=== PATIENT | female | born 1990 | race Caucasian/White ===

== ENCOUNTER 2020-02-28 09:34 | Outpatient (REF) | payer OTHER, SELFPAY ==
[2020-02-28 12:51] LABS: TSH reflex Free T4 0.03 mIU/mL (0.32-4.0)
[2020-02-28 13:25] LABS: Free T4 (Free Thyroxine) 1.14 ng/dL (0.71-1.85)
== END 2020-02-28 09:35 | disposition home or self-care (01) ==
LOC: HO.WFDLDS 09:34
PROVIDERS: Visit Provider Hospitalist
DX: E03.9 Hypothyroidism, unspecified (principal)
CPT/HCPCS: 84439; 84443

== ENCOUNTER 2020-05-08 07:10 | Emergency (ER) | payer OTHER, SELFPAY ==
[2020-05-08 07:58] VITALS: BP 132/72; PULSE 106; RESP 18; TEMP 36.9; O2SAT 100; BMI 36.8
--- NOTE | 2020-05-08 08:04 | US_ITS ---
EXAMINATION: PELVIC ULTRASOUND CLINICAL INFORMATION: Heavy vaginal bleeding COMPARISON: Previous pelvic ultrasound November 2013 TECHNIQUE: Transabdominal and transvaginal pelvic ultrasound. Transvaginal exam was performed for better visualization of the uterus and ovaries. FINDINGS: The uterus is anteverted and measures 8.4 x 3.9 x 5 cm in dimension. No focal uterine lesion is seen. Endometrial thickness is normal measuring 0.7 cm. There is echogenic material seen in the lower endometrium probably representing blood products. The cervix is normal appearing. The ovaries are normal-appearing. The right ovary measures 3.8 x 2 x 2.4 cm and the left ovary measures 4.3 x 2 x 2.1 cm. There is no fluid in the pelvis. US/US transvaginal IMPRESSION: Normal pelvic ultrasound. Echogenic material seen in the lower endometrium probably representing blood product.
--- NOTE | 2020-05-08 08:04 | US_ITS ---
EXAMINATION: PELVIC ULTRASOUND CLINICAL INFORMATION: Heavy vaginal bleeding COMPARISON: Previous pelvic ultrasound November 2013 TECHNIQUE: Transabdominal and transvaginal pelvic ultrasound. Transvaginal exam was performed for better visualization of the uterus and ovaries. FINDINGS: The uterus is anteverted and measures 8.4 x 3.9 x 5 cm in dimension. No focal uterine lesion is seen. Endometrial thickness is normal measuring 0.7 cm. There is echogenic material seen in the lower endometrium probably representing blood products. The cervix is normal appearing. The ovaries are normal-appearing. The right ovary measures 3.8 x 2 x 2.4 cm and the left ovary measures 4.3 x 2 x 2.1 cm. There is no fluid in the pelvis. US/US pelvic complete IMPRESSION: Normal pelvic ultrasound. Echogenic material seen in the lower endometrium probably representing blood product.
--- NOTE | 2020-05-08 08:05 | ED.FEMALEGU ---
HPI - Female Genitourinary General Chief complaint: Vaginal Bleeding Stated complaint: VAG BLEED Time Seen by Provider: 05/08/20 07:15 Source: patient Mode of arrival: ambulatory Limitations: no limitations History of Present Illness HPI Narrative: 29 yo female with asthma and hypothyroid here with first episode of bleeding in 4 years which started Thursday - heavy clots, no prior bleeding issues, no other medications other than for asthma/thyroid MD elicited complaint: vaginal bleeding Pertinent past history: other (hx of IUD that migrated) Onset (ago): day(s) (5) Severity: moderate Female Urogenital Radiation: Non-Radiating Quality of pain: cramping Consistency: constant Vaginal discharge: none Vaginal bleeding: heavy and clots Exacerbating factors: none Relieving factors: none Associated symptoms: denies other symptoms Treatment prior to arrival: none Sexual activity: No Related Data Previous Rx's Medication Instructions Recorded levothyroxine 50 mcg tablet 50 mcg PO DAILY #30 tab 03/12/20 medroxyprogesterone [Provera] 10 mg PO DAILY #9 tab 05/08/20 Allergies Allergy/AdvReac Type Severity Reaction Status Date / Time No Known Allergies Allergy Unknown NONE Verified 02/24/20 07:52 Review of Systems Review of Systems: Constitutional : No Fever, No Chills ENT/Mouth : No sore throat, No Rhinorrhea Eyes: No Eye Pain, No Redness Cardiovascular : No Chest Pain, No SOB Respiratory : No Cough, No Sputum, No Wheezing Gastrointestinal : no Nausea, No Vomiting, No Diarrhea, positive abdominal pain, Genitourinary : positive irregular bleeding, No Dysuria, No Urinary Frequency, positive pelvic pain Musculoskeletal : No Myalgias Skin : No rash Neuro : No Weakness, No Headache Psych : No Anxiety/Panic, No Depression Heme/Lymph: No bruising, No Lymphadenopathy Endocrine : No Polyuria, No Polydipsia All other systems reviewed and are negative PMFSH Past Medical History Attestation statement: The following information was validated with the patient. Medical History Alopecia Asthma Hypothyroid Surgical History Encounter for IUD removal Family History Family History (Updated 02/24/20 @ 07:53 by ERICH Cuellar) Father No problems noted. Mother No problems noted. Social History Social History (Updated 05/08/20 @ 08:12 by Tanya Steven DO) Smoking Status: Never smoker Advance Directives: No Advance Directives Information Provided: No Physical Exam Vital Signs: Vital Signs: Last Vital Signs Temp 98.2 F 05/08/20 10:00 Pulse 75 05/08/20 10:00 Resp 17 05/08/20 10:00 BP 108/73 05/08/20 10:00 Pulse Ox 98 05/08/20 10:00 Body Mass Index 36.8 Appearance: Alert. Oriented X3. No acute distress. Eyes: Pupils equal, round and reactive to light. ENT: Pharynx normal. Neck: Normal inspection. Neck supple. CVS: Normal heart rate and rhythm. Pulses normal. Respiratory: No respiratory distress. Breath sounds normal. Abdomen: Soft and nontender. : 2 scopettes of blood, 1 clot, no significant bleeding Skin: Skin warm and dry. Normal skin color. Normal skin turgor. Extremities: No lower extremity edema. No calf ttp Neuro: Oriented X 3. No motor deficit. No sensory deficit. Course Course Course Narrative: stable VS and H/H given precautions to return plans to follow up with OB will start on Provera MDM - Female Genitourinary MDM Narrative Medical decision making narrative: 29 yo female with nexplanon first vaginal bleeding episode - comes in with sig clots, normal BP slightly tachy but steady gait no dizziness, will obtain labs, Rh type, US to evaluate uterus, possible provera, has no OB likely episode related to nexplanon x 4 years. Lab Data Result diagrams: 05/08/20 08:42 05/08/20 08:42 Labs: Lab Results 05/08/20 05/08/20 05/08/20 Range/Units 08:42 08:42 08:42 WBC 8.1 (4.8-10.8) X10*3/uL RBC 4.61 (4.20-5.50) X10*6/uL Hgb 13.6 (12.0-16.0) g/dl Hct 41.7 (37-47) % MCV 90.5 (80-98) fL MCH 29.5 (27.0-33.0) pg MCHC 32.6 (31.0-35.0) g/dl RDW 12.6 (11.0-16.0) % Plt Count 317 (160-400) X10*3/uL MPV 12.3 (9.4-12.3) fL Immature Gran % (Auto) 0.2 (0.0-0.4) % Neut % (Auto) 68.5 (45-73) % Lymph % (Auto) 19.3 L (20-40) % [place] % (Auto) 8.0 (2-11) % Eos % (Auto) 2.9 (0-4) % Baso % (Auto) 1.1 (0-2) % Lymph # (Auto) 1.6 (1.2-4.9) X10*3/uL [place] # (Auto) 0.6 (0.1-1.2) X10*3/uL Eos # (Auto) 0.2 (0.0-0.4) X10*3/uL Baso # (Auto) 0.1 (0.0-0.2) X10*3/uL Abs Immat Gran (auto) 0.02 (0.00-0.03) X10*3/uL Absolute Neuts (auto) 5.5 (2.0-8.3) X10*3/uL Absolute Nucleated RBC 0.000 (0.0-0.012) X10*3/uL Nucleated RBC % (auto) 0.0 (0.0-0.2) /100WBC PT 13.8 H (10.8-13.0) SEC INR 1.2 H (0.9-1.1) APTT 43.3 H (24.1-38.0) SEC Sodium 140 (135-145) mmol/L Potassium 4.0 (3.3-5.1) mmol/l Chloride 108 (96-108) mmol/L Carbon Dioxide 25 (22-29) mmol/L Anion Gap 11 L (12-20) BUN 8 L (9-16) mg/dL Creatinine 0.73 (0.5-1.4) mg/dL Estim Creat Clear Calc 95.1 Estimated GFR > 60 Random Glucose 90 (60-115) mg/dL Calcium 8.7 (8.4-10.2) mg/dL Beta HCG, Quant < 2 mIU/mL Urine Color Urine Appearance Urine pH (5.0-8.0) Ur Specific [place] (1.005-1.025) Urine Protein (NEG-TRACE) MG/DL Urine Glucose (UA) (NEG) MG/DL Urine Ketones (NEG) MG/DL Urine Blood (NEG) Urine Nitrite (NEG) Ur Leukocyte Esterase (NEG) Urine RBC (0) /HPF Urine WBC (0-4) /HPF Ur Squamous Epith Cells /LPF Urine Bacteria /LPF Blood Type 05/08/20 05/08/20 Range/Units 08:46 09:01 WBC (4.8-10.8) X10*3/uL RBC (4.20-5.50) X10*6/uL Hgb (12.0-16.0) g/dl Hct (37-47) % MCV (80-98) fL MCH (27.0-33.0) pg MCHC (31.0-35.0) g/dl RDW (11.0-16.0) % Plt Count (160-400) X10*3/uL MPV (9.4-12.3) fL Immature Gran % (Auto) (0.0-0.4) % Neut % (Auto) (45-73) % Lymph % (Auto) (20-40) % [place] % (Auto) (2-11) % Eos % (Auto) (0-4) % Baso % (Auto) (0-2) % Lymph # (Auto) (1.2-4.9) X10*3/uL [place] # (Auto) (0.1-1.2) X10*3/uL Eos # (Auto) (0.0-0.4) X10*3/uL Baso # (Auto) (0.0-0.2) X10*3/uL Abs Immat Gran (auto) (0.00-0.03) X10*3/uL Absolute Neuts (auto) (2.0-8.3) X10*3/uL Absolute Nucleated RBC (0.0-0.012) X10*3/uL Nucleated RBC % (auto) (0.0-0.2) /100WBC PT (10.8-13.0) SEC INR (0.9-1.1) APTT (24.1-38.0) SEC Sodium (135-145) mmol/L Potassium (3.3-5.1) mmol/l Chloride (96-108) mmol/L Carbon Dioxide (22-29) mmol/L Anion Gap (12-20) BUN (9-16) mg/dL Creatinine (0.5-1.4) mg/dL Estim Creat Clear Calc Estimated GFR Random Glucose (60-115) mg/dL Calcium (8.4-10.2) mg/dL Beta HCG, Quant mIU/mL Urine Color RED Urine Appearance TURBID Urine pH 7.0 (5.0-8.0) Ur Specific [place] 1.020 (1.005-1.025) Urine Protein 2+ H (NEG-TRACE) MG/DL Urine Glucose (UA) NEG (NEG) MG/DL Urine Ketones NEG (NEG) MG/DL Urine Blood 3+ H (NEG) Urine Nitrite NEG (NEG) Ur Leukocyte Esterase NEG (NEG) Urine RBC TNTC H (0) /HPF Urine WBC 10-14 H (0-4) /HPF Ur Squamous Epith Cells NONE /LPF Urine Bacteria NONE /LPF Blood Type A Negative Discharge Plan Discharge Clinical Impression: Dysfunctional uterine bleeding Patient Disposition: Home, Self-Care Instructions: Dysfunctional Uterine Bleeding (ED) Additional Instructions: return to ED for any worsening symptoms or concerns return for weakness, worsening bleeding, shortness of breath Prescriptions: New medroxyprogesterone [Provera] 10 mg tablet 10 mg PO DAILY Qty: 9 RF: 0 No Action levothyroxine 50 mcg tablet 50 mcg PO DAILY Qty: 30 RF: 1 Referrals: June Jackson MD [Physician] - 1 week
[2020-05-08 08:56] LABS: MANUAL DIFF FLAG NO
[2020-05-08 09:04] LABS: Basophils Absolute Auto 0.1 X10*3/uL (0.0-0.2); Basophils Percent Auto 1.1 % (0-2); Eosinophils Absolute Auto 0.2 X10*3/uL (0.0-0.4); Eosinophils Percent Auto 2.9 % (0-4); Hematocrit 41.7 % (37-47); Hemoglobin 13.6 g/dl (12.0-16.0); Imm Gran Abs Auto 0.02 X10*3/uL (0.00-0.03); Imm Gran Pct Auto 0.2 % (0.0-0.4); Lymphocytes Absolute Auto 1.6 X10*3/uL (1.2-4.9); Lymphocytes Percent Auto 19.3 % (20-40); Mean Corpuscular HGB Conc 32.6 g/dl (31.0-35.0); Mean Corpuscular Hemoglobin 29.5 pg (27.0-33.0); Mean Corpuscular Volume 90.5 fL (80-98); Mean Platelet Volume 12.3 fL (9.4-12.3); Monocytes Absolute Auto 0.6 X10*3/uL (0.1-1.2); Neutrophils Absolute Auto 5.5 X10*3/uL (2.0-8.3); Neutrophils Percent Auto 68.5 % (45-73); Platelet Count 317 X10*3/uL (160-400); Red Blood Count 4.61 X10*6/uL (4.20-5.50); Red Cell Distribution Width 12.6 % (11.0-16.0); White Blood Count 8.1 X10*3/uL (4.8-10.8)
[2020-05-08 09:09] LABS: INTERNATIONAL NORM RATIO 1.2 (0.9-1.1); Prothrombin Time 13.8 SEC (10.8-13.0)
[2020-05-08 09:11] LABS: Partial Thromboplastin Time 43.3 SEC (24.1-38.0)
[2020-05-08 09:18] LABS: Glucose Urine UA NEG (NEG); Nitrite Urine NEG (NEG); Urine Blood 3+ (NEG); Urine Ketones NEG (NEG); Urine Protein 2+ MG/DL (NEG-TRACE)
[2020-05-08 09:20] LABS: Appearance Urine TURBID; Color Urine RED
[2020-05-08 09:21] LABS: Leukocyte Esterase Urine NEG (NEG)
[2020-05-08 09:22] LABS: RBC Urine TNTC /HPF (0); UACC CULT YES
[2020-05-08 09:29] LABS: Anion Gap 11 (12-20); Blood Urea Nitrogen 8 mg/dL (9-16); Calcium 8.7 mg/dL (8.4-10.2); Carbon Dioxide 25 mmol/L (22-29); Chloride 108 mmol/L (96-108); Creatinine Clr Calc Pharmacy 95.1; Estimated Glomerular Filt Rate > 60; Glucose Random 90 mg/dL (60-115); Sodium 140 mmol/L (135-145)
[2020-05-08 09:36] LABS: HCG Quantitative < 2 mIU/mL
[2020-05-08 10:00] VITALS: BP 108/73; PULSE 75; RESP 17; TEMP 36.8; O2SAT 98
[2020-05-08] MEDS: medroxyPROGESTERone Acetate 5 MG TABLET 10 MG PO (11:13)
== END 2020-05-08 11:15 | disposition home or self-care (01) ==
PROVIDERS: Emergency Provider Emergency Medicine; PCP Hospitalist
DX: N93.8 Other specified abnormal uterine and vaginal bleeding (principal)
CPT/HCPCS: 36415; 76830; 76856; 80048; 81001; 84702; 85025; 85610; 85730; 86900; 86901; 87086; 99284

== ENCOUNTER 2020-05-11 07:45 | Outpatient (REF) | payer OTHER, SELFPAY ==
[2020-05-11 10:43] LABS: TSH reflex Free T4 8.58 mIU/mL (0.32-4.0)
[2020-05-11 11:20] LABS: Free T4 (Free Thyroxine) 0.83 ng/dL (0.71-1.85)
[2020-05-12 09:02] LABS: Prolactin 5.4 ng/mL
[2020-05-12 13:19] LABS: BV Int Neg Control Negative (Negative); BV Int Pos Control Positive (Positive)
[2020-05-13 02:17] LABS: C. trachomatis RNA TMA NOT DETECTED (NOT DETECTED); N. gonorrhoeae RNA TMA NOT DETECTED (NOT DETECTED)
[2020-05-16 06:02] LABS: HPV mRNA E6/E7 rflx Not Detected (Not Detected)
== END 2020-05-11 07:46 | disposition home or self-care (01) ==
LOC: HO.LAB 07:45
PROVIDERS: PCP Hospitalist; Visit Provider Obstetrics & Gynecology
DX: Z30.432 Encounter for removal of intrauterine contraceptive device (principal); N93.9 Abnormal uterine and vaginal bleeding, unspecified; L65.9 Nonscarring hair loss, unspecified; J45.909 Unspecified asthma, uncomplicated; E03.9 Hypothyroidism, unspecified; R79.1 Abnormal coagulation profile
CPT/HCPCS: 36415; 58100; 84146; 84439; 84443; 87480; 87491; 87510; 87591; 87624; 87660; 88142; 88305; 99202

== ENCOUNTER 2020-06-06 19:57 | Emergency (ER) | payer OTHER, SELFPAY ==
--- NOTE | ~2020-06-06 | XR_ITS ---
EXAMINATION: LEFT ANKLE LEFT FOOT CLINICAL INFORMATION: Injury with pain COMPARISON: None TECHNIQUE: 2 views left ankle, 3 views left foot FINDINGS: z Left Ankle: Soft tissue swelling is present laterally but no fracture is seen. The ankle mortise appears stable. Left foot: No bone joint or soft tissue abnormality is seen. XR/XR foot LT min 3V IMPRESSION: Some mild soft tissue swelling seen laterally but no fractures are seen.
--- NOTE | ~2020-06-06 | XR_ITS ---
EXAMINATION: LEFT ANKLE LEFT FOOT CLINICAL INFORMATION: Injury with pain COMPARISON: None TECHNIQUE: 2 views left ankle, 3 views left foot FINDINGS: z Left Ankle: Soft tissue swelling is present laterally but no fracture is seen. The ankle mortise appears stable. Left foot: No bone joint or soft tissue abnormality is seen. XR/XR ankle LT min 3V IMPRESSION: Some mild soft tissue swelling seen laterally but no fractures are seen.
[2020-06-06 20:17] VITALS: RESP 16; TEMP 37.2; O2SAT 99; BMI 34.7
--- NOTE | 2020-06-06 22:31 | ED.LOWEXIN ---
HPI - Extremity Injury (Lower) General Chief Complaint: Extremity Injury, Lower Stated Complaint: Foot injury Time Seen by Provider: 06/06/20 22:21 Source: patient Mode of arrival: wheelchair Limitations: no limitations History of Present Illness HPI Narrative: Patient comes to emergency room complaining of left foot pain. Patient states she was walking her dog, stepped off a curve, spraining her ankle. However, patient states that her ankle hurts slightly, but the rest of her foot hurts more. Patient states he has had previous fractures in the metatarsals. Patient denies hitting her head, he is not on blood thinners. Other than the foot, no pain anywhere else. Related Data Home Medications Medication Instructions Recorded Confirmed albuterol 90 mcg INHALATION Q4-6H PRN 05/25/20 05/25/20 budesonide-formoterol 2 puff PO BID 05/25/20 05/25/20 levothyroxine 300 mcg PO DAILY 05/25/20 05/25/20 Allergies Allergy/AdvReac Type Severity Reaction Status Date / Time No Known Allergies Allergy Unknown NONE Verified 05/11/20 08:16 Review of Systems Review of Systems: Constitutional : No Weight loss, No Fever, No Chills, No Night Sweats, No Fatigue, No Malaise ENT/Mouth : No Hearing loss, No Ear Pain, No Nasal Congestion, No Sinus Pain, No Hoarseness, No sore throat, No Rhinorrhea, No Swallowing Difficulty Eyes: No Eye Pain, No Swelling, No Redness, No Foreign Body, No Discharge, No Vision Changes Cardiovascular : No Chest Pain, No SOB, No Dyspnea on Exertion, No Orthopnea, No Edema, No Palpitations Respiratory : No Cough, No Sputum, No Wheezing, No Smoke Exposure, No Dyspnea Gastrointestinal : No Nausea, No Vomiting, No Diarrhea, No Constipation, No abdominal Pain, No Hematochezia, No Melena Genitourinary : no irregular bleeding, No Dysuria, No Urinary Frequency, No Hematuria, No Urinary Incontinence, No Urgency, No Flank Pain, No Urinary Flow Changes, No Hesitancy Musculoskeletal : Complaining of left ankle and foot pain, No Myalgias, No Joint Swelling Skin : No Skin Lesions, No rash Neuro : No Weakness, No Numbness, No Paresthesias, No Loss of Consciousness, No Dizziness, No Headache Psych : No Anxiety/Panic, No Depression, No SI/HI/AH/VH, No Social Issues, Heme/Lymph: No Bruising, No Bleeding,No Lymphadenopathy Endocrine : No Polyuria, No Polydipsia, No Temperature Intolerance [facility] Past Medical History Medical History Alopecia Asthma Hypothyroid Surgical History Encounter for IUD removal Family History Family History (Updated 05/25/20 @ 10:08 by Krupa Foster) Father Asthma Emphysema lung Mother COPD (chronic obstructive pulmonary disease) CHF (congestive heart failure) HTN (hypertension) Maternal Grandfather Bladder cancer Maternal Uncle Liver cancer HTN (hypertension) Maternal Uncle HTN (hypertension) Social History Social History (Updated 05/25/20 @ 10:09 by Krupa Foster) Alcohol intake: former Smoking Status: Never smoker Smoked in Last 30 Days: No Use of substances other than those prescribed or required for medical reasons: No Any prior treatment program specific to substance use: No Advance Directives: No Advance Directives Information Provided: Yes Sexual orientation: Straight/Heterosexual Gender identity: female Physical Exam Vital Signs: Vital Signs: Last Vital Signs Temp 98.9 F 06/06/20 20:17 Resp 16 06/06/20 20:17 Pulse Ox 99 06/06/20 20:17 Body Mass Index 34.7 Appearance: Alert. Oriented X3. No acute distress. Eyes: Pupils equal, round and reactive to light. ENT: Pharynx normal. Neck: Normal inspection. Neck supple. No lymph nodes noted. No crepitus CVS: Normal heart rate and rhythm. Pulses normal. Normal S1 and S2 Respiratory: No respiratory distress. Breath sounds normal. No Wheezing. No rales Abdomen: Soft and nontender. No rigidity. No distention. good BS x4 Skin: Skin warm and dry. Normal skin color. Normal skin turgor. Extremities: No lower extremity edema. Pain to palpation over the dorsum of the left foot, no pain on the lateral or medial malleolus, patient unable to bear weight on left foot Neuro: Oriented X 3. No motor deficit. No sensory deficit. Moving all extermities. No slurred speech. Course Course Course Narrative: I discussed the x-ray with the patient, no acute fracture. Patient is unable to bear weight, crutches were provided. Patient states that she has enough ibuprofen and Tylenol at home, declined prescription MDM - Extremity Injury (Lower) Imaging Data Left foot and ankle x-ray: Radiologist's impression: EFT ANKLE LEFT FOOT CLINICAL INFORMATION: Injury with pain COMPARISON: None TECHNIQUE: 2 views left ankle, 3 views left foot FINDINGS: z Left Ankle: Soft tissue swelling is present laterally but no fracture is seen. The ankle mortise appears stable. Left foot: No bone joint or soft tissue abnormality is seen. XR/XR foot LT min 3V IMPRESSION: Some mild soft tissue swelling seen laterally but no fractures are seen. Discharge Plan Discharge Clinical Impression: Ankle sprain and strain Patient Disposition: Home, Self-Care Instructions: Ankle Sprain (ED) Additional Instructions: Please follow-up with your primary care physician tomorrow. If you have any worsening or new symptoms, please return to the emergency room or call 911 Prescriptions: No Action levothyroxine 50 mcg tablet 300 mcg PO DAILY RF: 0 albuterol 90 mcg/actuation Aerosol 90 mcg INHALATION Q4-6H PRN (Reason: Wheezing) RF: 0 budesonide-formoterol 160-4.5 mcg/actuation HFA aerosol inhaler 2 puff PO BID RF: 0
[2020-06-06] MEDS: Ibuprofen 600 MG TABLET PO (23:09)
--- NOTE | 2020-06-06 23:09 | PC.NURSE ---
PT ALERT, TRANSFERED FROM W/C TO BED COLD PACK TO LEFT FOOT.
== END 2020-06-06 23:46 | disposition home or self-care (01) ==
PROVIDERS: Emergency Provider Emergency Medicine; PCP Hospitalist
DX: S93.402A Sprain of unspecified ligament of left ankle, initial encounter (principal); M25.572 Pain in left ankle and joints of left foot; X50.1XXA Overexertion from prolonged static or awkward postures, initial encounter; Y93.K1 Activity, walking an animal; Y92.480 Sidewalk as the place of occurrence of the external cause; Y99.8 Other external cause status; Z79.899 Other long term (current) drug therapy
CPT/HCPCS: 73610; 73630; 99283; 99284

== ENCOUNTER 2020-06-13 15:26 | Outpatient (REF) | payer OTHER, SELFPAY ==
[2020-06-13 16:14] LABS: INTERNATIONAL NORM RATIO 1.2 (0.9-1.1); Prothrombin Time 13.8 SEC (10.8-13.0)
[2020-06-13 16:17] LABS: Partial Thromboplastin Time 38.8 SEC (24.1-38.0)
== END 2020-06-13 15:27 | disposition home or self-care (01) ==
LOC: HO.LAB 15:26
PROVIDERS: PCP Hospitalist; Visit Provider Internal Medicine Medical Oncology
DX: R79.1 Abnormal coagulation profile (principal)
CPT/HCPCS: 36415; 85610; 85730

== ENCOUNTER 2020-06-27 12:25 | Outpatient (REF) | payer OTHER, SELFPAY ==
[2020-06-27 13:54] LABS: TSH reflex Free T4 0.07 uIU/mL (0.32-4.0)
[2020-06-27 14:26] LABS: Free T4 (Free Thyroxine) 1.17 ng/dL (0.71-1.85)
== END 2020-06-27 12:26 | disposition home or self-care (01) ==
LOC: HO.LAB 12:25
PROVIDERS: PCP Hospitalist; Visit Provider Hospitalist
DX: E03.9 Hypothyroidism, unspecified (principal)
CPT/HCPCS: 36415; 84439; 84443

== ENCOUNTER → 2020-06-29 09:19 | Outpatient (BNVA) | payer OTHER, SELFPAY | PROVIDERS: PCP Hospitalist; Visit Provider Nurse Practitioner Gerontology | DX: E03.9 Hypothyroidism, unspecified (principal) | CPT/HCPCS: 99212 ==

== ENCOUNTER 2020-08-31 11:07 | Outpatient (REF) | payer OTHER, SELFPAY ==
[2020-08-31 13:15] LABS: Free T4 (Free Thyroxine) 0.97 ng/dL (0.71-1.85); Thyroid Stimulating Hormone 0.01 uIU/mL (0.32-4.0)
[2020-09-03 14:52] LABS: Thyroglobulin Antibodies <1 IU/mL (< or = 1); Thyroid Peroxidase Antibodies 293 IU/mL (<9)
[2020-09-04 16:32] LABS: Thyroid Stimulating Immunoglob <89 % baseline (<140)
[2020-09-04 22:16] LABS: Transglutaminase Ab IgG 3 U/mL
[2020-09-11 13:07] LABS: Endomysial IgA Antibody Negative (Negative)
== END 2020-08-31 11:08 | disposition home or self-care (01) ==
LOC: HO.LAB 11:07
PROVIDERS: PCP Hospitalist; Visit Provider Nurse Practitioner Gerontology
DX: E03.9 Hypothyroidism, unspecified (principal)
CPT/HCPCS: 36415; 83516; 83520; 84439; 84443; 84445; 86255; 86256; 86376; 86800

== ENCOUNTER → 2020-09-28 09:40 | Outpatient (BNVA) | payer OTHER, SELFPAY | PROVIDERS: PCP Hospitalist; Visit Provider Nurse Practitioner Gerontology ==

== ENCOUNTER 2020-10-18 07:24 | Outpatient (REF) | payer OTHER, SELFPAY ==
[2020-10-18 08:16] LABS: MANUAL DIFF FLAG NO
[2020-10-18 08:20] LABS: Basophils Absolute Auto 0.1 X10*3/uL (0.0-0.2); Basophils Percent Auto 0.8 % (0-2); Eosinophils Absolute Auto 0.2 X10*3/uL (0.0-0.4); Eosinophils Percent Auto 2.4 % (0-4); Hematocrit 42.6 % (37-47); Hemoglobin 13.7 g/dl (12.0-16.0); Imm Gran Abs Auto 0.03 X10*3/uL (0.00-0.03); Imm Gran Pct Auto 0.3 % (0.0-0.4); Mean Corpuscular HGB Conc 32.2 g/dl (31.0-35.0); Mean Corpuscular Hemoglobin 28.5 pg (27.0-33.0); Mean Corpuscular Volume 88.6 fL (80-98); Mean Platelet Volume 11.7 fL (9.4-12.3); Monocytes Absolute Auto 0.6 X10*3/uL (0.1-1.2); Monocytes Percent Auto 6.8 % (2-11); Neutrophils Absolute Auto 5.8 X10*3/uL (2.0-8.3); Neutrophils Percent Auto 66.7 % (45-73); Platelet Count 385 X10*3/uL (160-400); Red Blood Count 4.81 X10*6/uL (4.20-5.50); Red Cell Distribution Width 13.6 % (11.0-16.0); White Blood Count 8.7 X10*3/uL (4.8-10.8)
[2020-10-18 08:39] LABS: INTERNATIONAL NORM RATIO 1.1 (0.9-1.1); Prothrombin Time 12.3 SEC (9.9-13.0)
[2020-10-18 08:41] LABS: Partial Thromboplastin Time 39.4 SEC (24.1-38.0)
[2020-10-18 08:45] LABS: Alanine Aminotransferase 30 U/L (0-31); Albumin Level 4.2 g/dL (3.5-5.0); Alkaline Phosphatase 119 U/L (39-117); Anion Gap 14 (12-20); Aspartate Amino Transferase 18 U/L (5-31); Bilirubin Total 0.7 mg/dL (0.0-1.0); Blood Urea Nitrogen 12 mg/dL (9-16); Calcium 9.4 mg/dL (8.4-10.2); Carbon Dioxide 22 mmol/L (22-29); Chloride 107 mmol/L (96-108); Estimated Glomerular Filt Rate > 60; Glucose Random 111 mg/dL (60-115); Potassium 4.2 mmol/L (3.3-5.1); Sodium 139 mmol/L (135-145); Total Protein 6.9 g/dL (6.5-8.0)
[2020-10-18 09:08] LABS: Free T4 (Free Thyroxine) 1.15 ng/dL (0.71-1.85); Thyroid Stimulating Hormone 1.28 uIU/mL (0.32-4.0)
[2020-10-18 11:07] LABS: CT PCR NOT DETECTED (Not Detect.); NG PCR NOT DETECTED (Not Detect.)
== END 2020-10-18 07:25 | disposition home or self-care (01) ==
LOC: HO.LAB 07:24
PROVIDERS: Obstetrics & Gynecology; Absent Provider Nurse Practitioner Gerontology; PCP Hospitalist; Visit Provider Internal Medicine Medical Oncology
DX: Z11.3 Encounter for screening for infections with a predominantly sexual mode of transmission (principal); E03.9 Hypothyroidism, unspecified; R79.1 Abnormal coagulation profile; R10.11 Right upper quadrant pain; R79.89 Other specified abnormal findings of blood chemistry; R74.8 Abnormal levels of other serum enzymes
CPT/HCPCS: 36415; 80053; 84439; 84443; 85025; 85610; 85730; 87491; 87591

== ENCOUNTER 2020-12-29 15:33 | Outpatient (REF) | payer OTHER, SELFPAY | END 2020-12-29 15:34 | disposition home or self-care (01) | LOC: HO.LNP 15:33 | PROVIDERS: Visit Provider Physician Assistant Medical | DX: Z20.822 Contact with and (suspected) exposure to COVID-19 (principal); J31.0 Chronic rhinitis; J32.9 Chronic sinusitis, unspecified | CPT/HCPCS: U0003; U0005 ==

== ENCOUNTER 2021-07-15 15:01 | Outpatient (REF) | payer OTHER, SELFPAY ==
[2021-07-15 15:11] LABS: MANUAL DIFF FLAG NO
[2021-07-15 15:37] LABS: Basophils Absolute Auto 0.1 X10*3/uL (0.0-0.2); Basophils Percent Auto 0.8 % (0-2); Eosinophils Absolute Auto 0.3 X10*3/uL (0.0-0.4); Eosinophils Percent Auto 2.3 % (0-4); Hematocrit 41.6 % (37.0-47.0); Hemoglobin 13.5 g/dl (12.0-16.0); Imm Gran Abs Auto 0.02 X10*3/uL (0.00-0.03); Imm Gran Pct Auto 0.2 % (0.0-0.4); Lymphocytes Absolute Auto 3.2 X10*3/uL (1.2-4.9); Lymphocytes Percent Auto 30.1 % (20-40); Mean Corpuscular HGB Conc 32.5 g/dl (31.0-35.0); Mean Corpuscular Hemoglobin 29.5 pg (27.0-33.0); Mean Corpuscular Volume 90.8 fL (80.0-98.0); Mean Platelet Volume 11.5 fL (9.4-12.3); Monocytes Absolute Auto 0.8 X10*3/uL (0.1-1.2); Monocytes Percent Auto 7.4 % (2-11); Neutrophils Absolute Auto 6.3 x10*3/uL (2.0-8.3); Neutrophils Percent Auto 59.2 % (45-73); Platelet Count 364 X10*3/uL (160-400); Red Blood Count 4.58 X10*6/uL (4.20-5.50); Red Cell Distribution Width 12.9 % (11.0-16.0); White Blood Count 10.7 X10*3/uL (4.8-10.8)
[2021-07-15 16:00] LABS: Alanine Aminotransferase 35 U/L (0-31); Albumin Level 4.5 g/dL (3.5-5.0); Alkaline Phosphatase 97 U/L (39-117); Anion Gap 12 (12-20); Aspartate Amino Transferase 23 U/L (5-31); Bilirubin Direct 0.2 mg/dL (0.0-0.5); Bilirubin Total 0.6 mg/dL (0.0-1.0); Blood Urea Nitrogen 10 mg/dL (9-16); Calcium 9.9 mg/dL (8.4-10.2); Carbon Dioxide 27 mmol/L (22-29); Chloride 105 mmol/L (96-108); Estimated Glomerular Filt Rate > 60; Glucose Random 85 mg/dL (60-115); Potassium 4.9 mmol/L (3.3-5.1); Sodium 139 mmol/L (135-145); Total Protein 7.3 g/dL (6.5-8.0)
[2021-07-15 16:23] LABS: Free T4 (Free Thyroxine) 0.75 ng/dL (0.71-1.85); Thyroid Stimulating Hormone 41.09 uIU/mL (0.32-4.0); Vitamin D 25-OH Total 24.4 ng/mL (>30)
[2021-07-15 16:34] LABS: Folate 7.3 ng/mL (> or = 4.0); Vitamin B12 537 pg/mL (200-900)
[2021-07-16 08:32] LABS: HBc Num1 0.08 S/CO (0.00-0.79); HBsAGNum1 0.19 S/CO (0.00-0.99); Hepatitis B Core Antibody Nonreactive (Nonreactive); Hepatitis B Surface Antigen Negative (Negative)
[2021-07-16 09:04] LABS: HBS Num1 0.28 mIU/mL (0-7.99); ~HepC Num1 0.08 S/CO (0.00-0.79); ~Hepatitis B Surface Antibody NONREACTIVE (Nonreactive); ~Hepatitis C Antibody Nonreactive (Nonreactive)
== END 2021-07-15 15:02 | disposition home or self-care (01) ==
LOC: HO.LAB 15:01
PROVIDERS: PCP Internal Medicine; Visit Provider Internal Medicine
DX: R94.5 Abnormal results of liver function studies (principal); E03.9 Hypothyroidism, unspecified
CPT/HCPCS: 36415; 80053; 82248; 82306; 82607; 82746; 84439; 84443; 85025; 86704; 86706; 86803; 87340

== ENCOUNTER 2021-07-27 08:23 | Outpatient (REF) | payer OTHER, SELFPAY ==
[2021-07-27 09:23] LABS: Cholesterol 196 mg/dL; HDL Cholesterol 50 mg/dL; LDL Cholesterol Calculated 137 mg/dl; Triglycerides 48 mg/dL
== END 2021-07-27 08:24 | disposition home or self-care (01) ==
LOC: HO.LAB 08:23
PROVIDERS: PCP Internal Medicine; Visit Provider Internal Medicine
DX: E78.00 Pure hypercholesterolemia, unspecified (principal); R79.89 Other specified abnormal findings of blood chemistry
CPT/HCPCS: 36415; 80061

== ENCOUNTER 2021-09-04 08:13 | Outpatient (REF) | payer OTHER, SELFPAY ==
--- NOTE | ~2021-09-04 | US_ITS ---
EXAMINATION: US ABDOMEN COMPLETE CLINICAL INFORMATION: Elevated LFTs. COMPARISON: CT abdomen and pelvis 12/06/2013. TECHNIQUE: Real-time imaging of the abdominal viscera. FINDINGS: PANCREAS: Within normal limits. The tail is not adequately visualized. The head is suboptimally visualized ABDOMINAL AORTA: The proximal, mid, and distal segments are normal in caliber. INFERIOR VENA CAVA: Visualized portions are normal. LIVER: Normal. The liver is normal in size. The liver contour is normal. Parenchymal echogenicity is normal. No focal hepatic lesion. There is no intrahepatic biliary duct dilatation seen. GALLBLADDER: Normal. The gallbladder is physiologically distended without evidence of stones, sludge, polyps, wall thickening or pericholecystic fluid. COMMON BILE DUCT: Normal in caliber measuring 0.3 cm in diameter. RIGHT KIDNEY: Normal. No hydronephrosis. No renal calculi or focal parenchymal lesions. The kidney measures 10.9 cm in maximum dimension. LEFT KIDNEY: Normal. No hydronephrosis. No renal calculi or focal parenchymal lesions. The kidney measures 11.2 cm in maximum dimension. SPLEEN: Normal. The spleen measures 9.8 cm in maximum dimension. FREE FLUID: None. US/US abdomen complete IMPRESSION: No suspicious finding. No evidence of cholelithiasis or cholecystitis. There is no free fluid. The visualized Liver is felt to be unremarkable.
== END 2021-09-04 08:14 | disposition home or self-care (01) ==
LOC: HO.US 08:13
PROVIDERS: Visit Provider Internal Medicine
DX: R18.8 Other ascites (principal); R79.89 Other specified abnormal findings of blood chemistry
CPT/HCPCS: 76700

== ENCOUNTER → 2021-09-27 09:50 | Outpatient (BNVA) | payer OTHER, SELFPAY | PROVIDERS: PCP Internal Medicine; Visit Provider Nurse Practitioner Gerontology | DX: E03.9 Hypothyroidism, unspecified (principal) | CPT/HCPCS: 99212 ==

== ENCOUNTER 2021-10-03 08:45 | Outpatient (REF) | payer OTHER, SELFPAY ==
[2021-10-03 10:39] LABS: Free T4 (Free Thyroxine) 0.93 ng/dL (0.71-1.85)
== END 2021-10-03 08:46 | disposition home or self-care (01) ==
LOC: HO.LAB 08:45
PROVIDERS: PCP Internal Medicine; Visit Provider Nurse Practitioner Gerontology
DX: E03.9 Hypothyroidism, unspecified (principal)
CPT/HCPCS: 36415; 84439; 84443

== ENCOUNTER 2021-10-31 10:21 | Outpatient (REF) | payer OTHER, SELFPAY ==
[2021-10-31 11:01] LABS: MANUAL DIFF FLAG NO
[2021-10-31 11:32] LABS: Basophils Absolute Auto 0.2 X10*3/uL (0.0-0.2); Basophils Percent Auto 1.6 % (0-2); Eosinophils Absolute Auto 0.3 X10*3/uL (0.0-0.4); Eosinophils Percent Auto 3.6 % (0-4); Hematocrit 41.8 % (37.0-47.0); Hemoglobin 13.7 g/dl (12.0-16.0); Imm Gran Abs Auto 0.03 X10*3/uL (0.00-0.03); Imm Gran Pct Auto 0.3 % (0.0-0.4); Lymphocytes Absolute Auto 1.9 X10*3/uL (1.2-4.9); Lymphocytes Percent Auto 20.7 % (20-40); Mean Corpuscular HGB Conc 32.8 g/dl (31.0-35.0); Mean Corpuscular Hemoglobin 30.1 pg (27.0-33.0); Mean Corpuscular Volume 91.9 fL (80.0-98.0); Monocytes Absolute Auto 0.8 X10*3/uL (0.1-1.2); Monocytes Percent Auto 9.1 % (2-11); Neutrophils Absolute Auto 5.9 x10*3/uL (2.0-8.3); Neutrophils Percent Auto 64.7 % (45-73); Platelet Count 364 X10*3/uL (160-400); Red Blood Count 4.55 X10*6/uL (4.20-5.50); Red Cell Distribution Width 12.6 % (11.0-16.0); White Blood Count 9.1 X10*3/uL (4.8-10.8)
[2021-10-31 12:07] LABS: Alanine Aminotransferase 38 U/L (0-31); Albumin Level 4.4 g/dL (3.5-5.0); Alkaline Phosphatase 106 U/L (39-117); Anion Gap 13 (12-20); Aspartate Amino Transferase 23 U/L (5-31); Bilirubin Total 0.6 mg/dL (0.0-1.0); Blood Urea Nitrogen 11 mg/dL (9-16); Carbon Dioxide 23 mmol/L (22-29); Chloride 107 mmol/L (96-108); Estimated Glomerular Filt Rate > 60; Glucose Random 94 mg/dL (60-115); Potassium 4.6 mmol/L (3.3-5.1); Sodium 138 mmol/L (135-145); Total Protein 7.1 g/dL (6.5-8.0)
[2021-11-01 08:14] LABS: HBS Num1 1.18 mIU/mL (0-7.99); Hepatitis B Surface Antigen Negative (Negative); ~HepC Num1 0.05 S/CO (0.00-0.79); ~Hepatitis B Surface Antibody NONREACTIVE (Nonreactive); ~Hepatitis C Antibody Nonreactive (Nonreactive)
[2021-11-03 00:07] LABS: TS Negative Control Passed; TS Panel A 0; TS Panel B 0; TS Positive Control Passed; TSpotTB Negative (Negative)
[2021-11-05 10:55] LABS: Hepatitis BE Antibody NON-REACTIVE (NON-REACTIVE)
== END 2021-10-31 10:22 | disposition home or self-care (01) ==
LOC: HO.LAB 10:21
PROVIDERS: Absent Provider Internal Medicine Medical Oncology; PCP Internal Medicine; Referring Provider Physician Assistant Medical; Visit Provider Internal Medicine
DX: Z11.1 Encounter for screening for respiratory tuberculosis (principal); L63.8 Other alopecia areata
CPT/HCPCS: 36415; 80053; 85025; 86481; 86706; 86707; 86803; 87340

== ENCOUNTER 2021-11-06 09:02 | Outpatient (REF) | payer OTHER, SELFPAY ==
[2021-11-06 10:24] LABS: Cholesterol 170 mg/dL; HDL Cholesterol 42 mg/dL; LDL Cholesterol Calculated 114 mg/dl; Triglycerides 73 mg/dL
[2021-11-06 10:46] LABS: Free T4 (Free Thyroxine) 0.92 ng/dL (0.71-1.85); Thyroid Stimulating Hormone 0.76 uIU/mL (0.32-4.0)
[2021-11-06 11:30] LABS: Reflex LDLD? No
== END 2021-11-06 09:03 | disposition home or self-care (01) ==
LOC: HO.LAB 09:02
PROVIDERS: PCP Internal Medicine; Visit Provider Dermatology
DX: E03.9 Hypothyroidism, unspecified (principal); L63.8 Other alopecia areata
CPT/HCPCS: 36415; 80061; 84439; 84443

== ENCOUNTER 2021-11-12 15:27 | Outpatient (REF) | payer OTHER, SELFPAY ==
--- NOTE | ~2021-11-12 | US_ITS ---
EXAMINATION: US THYROID CLINICAL INFORMATION: Hypothyroidism COMPARISON: None TECHNIQUE: Linear transducer grayscale and color Doppler examination with attention to the region of the thyroid. FINDINGS: SIZE: Measurements of the thyroid lobes and nodules are given in sagittal, anteroposterior and transverse dimensions respectively. Right Thyroid Lobe: 4.7 x 1.7 x 1.6 cm, volume 6.6 mL. Parenchyma: The gland echotexture is heterogeneous. Thyroid vascularity is increased. Left Thyroid Lobe: 4.4 x 1.5 x 1.6 cm, volume 5.3 mL. Parenchyma: The gland echotexture is heterogeneous. Thyroid vascularity is increased. Isthmus: 0.38 cm in maximum AP dimension. Estimated total number of nodules greater than or equal to 1 cm: 0. Hand Developer nodules are described as follows: 1. Location: Left midpole. Size: 0.50 x 0.30 x 0.40 cm, volume 0.03 mL. Nodule characteristics: Composition: Solid (2). Echogenicity: Hyperechoic (1). Shape: Not taller than wide (0). Margins: Smooth (0). Echogenic Foci: None (0). ACR TI-RADS total points: 3 ACR TI-RADS category: 3 NODES: No lymphadenopathy is seen in the tissue surrounding the thyroid gland. US/US thyroid IMPRESSION: Findings consistent with acute thyroiditis. Single left midpole hyperechoic nodule with ACR TI-RADS Category 3 ACR TI-RADS RECOMMENDATION REFERENCE: * TR1 (0 point) and TR 2 (2 points): No FNA or follow up * TR3 (3 points): FNA if more than or equal to 2.5 cm in maximum dimension, followup ultrasound in 1, 3 and 5 years if 1.5 to 2.4 cm in maximum dimension.
== END 2021-11-12 15:28 | disposition home or self-care (01) ==
LOC: HO.HMGCX 15:27
PROVIDERS: Visit Provider Nurse Practitioner Gerontology
DX: E03.9 Hypothyroidism, unspecified (principal)
CPT/HCPCS: 76536

== ENCOUNTER → 2022-04-09 15:15 | Outpatient (BNVA) | payer OTHER, SELFPAY | PROVIDERS: PCP Internal Medicine; Visit Provider Internal Medicine Endocrinology, Diabetes & Metabolism | DX: E03.9 Hypothyroidism, unspecified (principal) | CPT/HCPCS: 99212 ==

== ENCOUNTER 2022-08-13 10:12 | Outpatient (REF) | payer OTHER, SELFPAY ==
[2022-08-13 10:35] LABS: MANUAL DIFF FLAG NO
[2022-08-13 10:59] LABS: Basophils Absolute Auto 0.1 X10*3/uL (0.0-0.2); Eosinophils Absolute Auto 0.3 X10*3/uL (0.0-0.4); Eosinophils Percent Auto 3.1 % (0-4); Hematocrit 40.6 % (37.0-47.0); Hemoglobin 13.2 g/dl (12.0-16.0); Imm Gran Abs Auto 0.03 X10*3/uL (0.00-0.03); Imm Gran Pct Auto 0.3 % (0.0-0.4); Lymphocytes Absolute Auto 2.4 X10*3/uL (1.2-4.9); Lymphocytes Percent Auto 23.8 % (20-40); Mean Corpuscular HGB Conc 32.5 g/dl (31.0-35.0); Mean Corpuscular Volume 92.3 fL (80.0-98.0); Mean Platelet Volume 11.3 fL (9.4-12.3); Monocytes Absolute Auto 0.8 X10*3/uL (0.1-1.2); Monocytes Percent Auto 8.4 % (2-11); Neutrophils Absolute Auto 6.4 x10*3/uL (2.0-8.3); Neutrophils Percent Auto 63.4 % (45-73); Platelet Count 413 X10*3/uL (160-400); White Blood Count 10.1 X10*3/uL (4.8-10.8)
[2022-08-13 11:57] LABS: Alanine Aminotransferase 28 U/L (0-31); Albumin Level 4.1 g/dL (3.5-5.0); Alkaline Phosphatase 107 U/L (39-117); Anion Gap 12 (12-20); Aspartate Amino Transferase 18 U/L (5-31); Bilirubin Total 0.5 mg/dL (0.0-1.0); Blood Urea Nitrogen 12 mg/dL (9-16); Calcium 9.5 mg/dL (8.4-10.2); Carbon Dioxide 24 mmol/L (22-29); Chloride 108 mmol/L (96-108); Cholesterol 181 mg/dL; Estimated Glomerular Filt Rate > 60; Glucose Random 86 mg/dL (60-115); HDL Cholesterol 49 mg/dL; LDL Cholesterol Calculated 122 mg/dl; Sodium 139 mmol/L (135-145); Total Protein 6.7 g/dL (6.5-8.0); Triglycerides 53 mg/dL
[2022-08-13 12:22] LABS: Free T4 (Free Thyroxine) 0.75 ng/dL (0.71-1.85); Thyroid Stimulating Hormone 2.21 uIU/mL (0.32-4.0)
[2022-08-15 03:44] LABS: LDL Cholesterol Direct 116 mg/dL (<100)
== END 2022-08-13 10:13 | disposition home or self-care (01) ==
LOC: HO.LAB 10:12
PROVIDERS: PCP Internal Medicine; Visit Provider Physician Assistant Medical
DX: E03.9 Hypothyroidism, unspecified (principal); L63.8 Other alopecia areata; L70.0 Acne vulgaris
CPT/HCPCS: 36415; 80053; 80061; 83721; 84439; 84443; 85025

== ENCOUNTER 2022-11-19 09:06 | Outpatient (AMB) | payer OTHER, SELFPAY ==
[2022-11-19 09:07] VITALS: BP 112/68; PULSE 65; O2SAT 99; BMI 39.5
--- NOTE | 2022-11-19 09:07 | MHC.PC.OV ---
Vital Signs 11/19/22 09:07 Height 4 ft 10 in Weight 189 lb BMI 39.5 BP 112/68 Blood Pressure Location Lt brachial Position Sitting Pulse 65 Pulse Source Pulse Oximeter Temp Source Skin Pulse Oximetry (%) 99 Oxygen Delivery Method Room Air Intake Visit Reasons: Medications Ski Topper Required: No Allergies Seasonal Allergies Allergy (Verified 11/19/22 09:19) ASTHMA Medication List - Last Reconciled 11/19/22 by LEX[facility] [place] albuterol sulfate 90 mcg/actuation 1 inh inhalation QID PRN 30 days baricitinib (Olumiant) 2 mg PO DAILY budesonide-formoterol 160-4.5 mcg/actuation (Symbicort) 2 puffs PO BID bupropion HCl (Wellbutrin XL) 150 mg PO QAM levothyroxine 150 mcg PO DAILY 30 days [multivitamin PO DAILY] [Probiotic 1 tab PO DAILY] Tobacco use date assessed: 11/19/22 Dental Screening Dental Screen Date: 11/19/22 Did you have a dental visit in the last 12 months?: Yes Did you have a dental problem in the last 6 months where you did not have access to dental care?: No Was dental information given to patient?: Patient has dentist HPI Medications HPI Details Patient is a 32-year-old female presents today to follow-up on medications. Patient of Dr. Rod. Medical history significant for hypothyroid asthma obesity, alopecia-followed by Dermatology, depression, anxiety. Patient reports that she feels like her anxiety is worse now, she has hard time sleeping, it looks like patient has been off her Wellbutrin for the past 3 months, will resent prescription in give 2 refills. Patient denies shortness of breath or chest pain. Asthma is stable. Interested in counseling referral. Recent blood work 3 months ago stable. [facility] Medical History Alopecia Asthma Foot fracture, left Hypothyroid Recurrent major depression Rhinosinusitis Right otitis media Surgical History Encounter for IUD removal Family History Father Asthma Emphysema lung Myocardial infarct Mother COPD (chronic obstructive pulmonary disease) CHF (congestive heart failure) HTN (hypertension) Maternal Grandfather Bladder cancer Maternal Uncle Liver cancer HTN (hypertension) Maternal Uncle HTN (hypertension) Social History Household Members: Family Housing: House Alcohol intake: current Alcohol intake frequency: holidays/special occasions only Patient Tobacco Use Status: Never used Tobacco service: No Current occupational status: employed Sexual orientation: Straight/Heterosexual Gender identity: Female Cognitive needs: No Hearing needs: No Vision needs: No Questionnaire Thrive Questionnaire Date Thrive assessed: 07/21/22 AUDIT C Alcohol Use Questionnaire (AUDIT-C) 1. How often do you have a drink containing alcohol?: 2-4 times a month 2. How many drinks containing alcohol do you have on a typical day when you are drinking?: 1 or 2 3. How often do you have six or more drinks on one occasion?: Never Total Score: 2 Score Reviewed/Action Taken: No MARGI-7 AMB Questionnaire MARGI-7 Date MARGI - 7 assessed: 07/21/22 Source: Developed by Drs. Alhaji Lindo, Radha Antonio, Myke Brizuela and colleagues, with an educational isa from [employer]. Review of Systems Const Denies body aches, Denies chills, Denies fever(s) and Denies headache(s) Eyes Denies change in vision ENT Denies dizziness, Denies otalgia, Denies headache(s), Denies nasal discharge, Denies sinus pain and Denies sore throat Card Denies chest pain, Denies edema, Denies lightheadedness and Denies dyspnea Resp Denies cough, Denies dyspnea and Denies wheezing GI Denies constipation, Denies diarrhea, Denies nausea and Denies vomiting Denies dysuria Musc Denies myalgias Skin/Breast Denies rash Neuro Denies dizziness and Denies headache(s) Aller/Immun Denies wheezing Physical exam (Primary Care) Vital Signs: Last Vital Signs Pulse 65 11/19/22 09:07 BP 112/68 11/19/22 09:07 Pulse Ox 99 11/19/22 09:07 Oxygen Delivery Method Room Air 11/19/22 09:07 BMI result Body Mass Index 39.5 Tobacco/Smoking Status: Tobacco use Status Tobacco use date assessed 11/19/22 11/19/22 09:08 Patient Tobacco Use Status Never used Tobacco 11/19/22 09:08 Thrive Assessment: Date of Thrive Assessment Date Thrive assessed 07/21/22 11/19/22 09:08 Const General: cooperative and no acute distress Orientation/consciousness: patient oriented x3 HENMT Head: Yes normocephalic and Yes atraumatic Face and sinus: Yes sinuses nontender Mouth: oropharynx normal and moist mucous membranes Throat: Yes posterior oropharynx normal Eyes General: appearance normal, both eyes and all related structures Neck Neck: Yes normal visual inspection, Yes full ROM and Yes no lymphadenopathy Thyroid: Thyroid normal Resp Effort & Inspection: normal respiratory effort and able to speak in complete sentences Auscultation: clear to auscultation bilaterally, no crackles, no rales, no rhonchi and no wheezes Cardio Rate: regular rate Rhythm: regular rhythm Heart sounds: S1 normal heart sound present and S2 normal heart sound present GI Auscultation: normal bowel sounds Skin General skin exam: no rashes or lesions noted Neuro General: patient oriented x3 Gait exam (Neuro): Normal gait present Extrem General: Yes full ROM and No edema Assessment and Plan Assessment & Plan (1) Anxiety: Code(s): F41.9 - Anxiety disorder, unspecified Plan: Patient has been of Wellbutrin for the past 3 months, continue Wellbutrin rx resend Start hydroxyzine b.i.d. p.r.n.-educated about drowsiness Counseling referral (2) Recurrent major depression: Code(s): F33.9 - Major depressive disorder, recurrent, unspecified Plan: Same as above (3) Asthma: Code(s): J45.909 - Unspecified asthma, uncomplicated Plan: Stable Continue current inhalers as prescribed (4) Hypothyroid: Code(s): E03.9 - Hypothyroidism, unspecified Plan: Continue levothyroxine 150 mcg daily Plan Keep appointment with PCP as scheduled or follow-up sooner as needed Orders: Referrals Counseling Referral F33.9 - Major depressive disorder, recurrent, unspecified, F41.9 - Anxiety disorder, unspecified Medications: New hydroxyzine HCl 10 mg PO BID PRN 14 tabs 0RF anxiety F41.9 - Anxiety disorder, unspecified Refilled bupropion HCl (Wellbutrin XL) 150 mg PO QAM 30 tabs 2RF F33.9 - Major depressive disorder, recurrent, unspecified, F41.9 - Anxiety disorder, unspecified Coding Level of Care Code Est Pt Level 4 (86447) Diagnoses Anxiety F41.9 Recurrent major depression F33.9 Asthma J45.909 Hypothyroid E03.9
== END 2022-11-19 09:32 | disposition home or self-care (01) ==
PROVIDERS: PCP Internal Medicine; Visit Provider Nurse Practitioner Family
DX: F41.9 Anxiety disorder, unspecified (principal); F33.9 Major depressive disorder, recurrent, unspecified; J45.909 Unspecified asthma, uncomplicated; E03.9 Hypothyroidism, unspecified
CPT/HCPCS: 99214

== ENCOUNTER 2022-11-19 09:45 | Outpatient (REF) | payer OTHER, SELFPAY ==
[2022-11-19 10:08] LABS: MANUAL DIFF FLAG NO
[2022-11-19 10:46] LABS: Basophils Absolute Auto 0.1 X10*3/uL (0.0-0.2); Basophils Percent Auto 1.3 % (0-2); Eosinophils Absolute Auto 0.3 X10*3/uL (0.0-0.4); Hematocrit 43.9 % (37.0-47.0); Hemoglobin 14.1 g/dl (12.0-16.0); Imm Gran Abs Auto 0.03 X10*3/uL (0.00-0.03); Imm Gran Pct Auto 0.3 % (0.0-0.4); Lymphocytes Absolute Auto 2.7 X10*3/uL (1.2-4.9); Lymphocytes Percent Auto 28.8 % (20-40); Mean Corpuscular HGB Conc 32.1 g/dl (31.0-35.0); Mean Corpuscular Hemoglobin 29.6 pg (27.0-33.0); Monocytes Absolute Auto 0.5 X10*3/uL (0.1-1.2); Monocytes Percent Auto 5.7 % (2-11); Neutrophils Absolute Auto 5.7 x10*3/uL (2.0-8.3); Neutrophils Percent Auto 60.9 % (45-73); Platelet Count 423 X10*3/uL (160-400); Red Blood Count 4.77 X10*6/uL (4.20-5.50); Red Cell Distribution Width 12.9 % (11.0-16.0); White Blood Count 9.4 X10*3/uL (4.8-10.8)
[2022-11-19 11:22] LABS: Alanine Aminotransferase 26 U/L (0-31); Albumin Level 4.3 g/dL (3.5-5.0); Alkaline Phosphatase 88 U/L (39-117); Anion Gap 11 (12-20); Aspartate Amino Transferase 20 U/L (5-31); Bilirubin Total 0.4 mg/dL (0.0-1.0); Blood Urea Nitrogen 14 mg/dL (9-16); Calcium 9.4 mg/dL (8.4-10.2); Carbon Dioxide 26 mmol/L (22-29); Chloride 107 mmol/L (96-108); Cholesterol 218 mg/dL; Estimated Glomerular Filt Rate > 60; Glucose Random 88 mg/dL (60-115); HDL Cholesterol 56 mg/dL; LDL Cholesterol Calculated 148 mg/dl; Sodium 140 mmol/L (135-145); Total Protein 7.5 g/dL (6.5-8.0); Triglycerides 74 mg/dL
== END 2022-11-19 09:46 | disposition home or self-care (01) ==
LOC: HO.LAB 09:45
PROVIDERS: PCP Internal Medicine; Visit Provider Physician Assistant Medical
DX: L63.8 Other alopecia areata (principal); L70.0 Acne vulgaris; L72.0 Epidermal cyst; L91.8 Other hypertrophic disorders of the skin; Z79.899 Other long term (current) drug therapy
CPT/HCPCS: 36415; 80053; 80061; 85025

== ENCOUNTER 2023-05-15 08:11 | Outpatient (AMB) | payer OTHER, SELFPAY ==
--- NOTE | 2023-05-15 08:14 | MHC.OFFWIV ---
Intake Vital Signs 05/15/23 08:15 Height 4 ft 10 in Weight 185 lb BMI 38.7 BP 120/72 Blood Pressure Location Lt brachial Position Sitting Pulse 78 Pulse Source Pulse Oximeter Temp 98.3 F Temp Source Oral Pulse Oximetry (%) 98 Oxygen Delivery Method Room Air Intake Visit Reasons: EP Upper back/asthma Intake Note: pt is here for c.o asthma flair up for a few weeks, with a complaint of upper back pain, pcp sent in [place] yesterday patient just was told at intake. Patient Tobacco Use Status: Never used Tobacco Allergies Seasonal Allergies Allergy (Verified 05/15/23 08:19) ASTHMA Do you need a note to return to daycare/school/sports/work: Yes HPI HPI Comments History of Present Illness Details This is a 32-year-old female with past medical history significant for mild persistent asthma who presented to the walk-in clinic complaining of worsening shortness of breath, wheezing, and dry cough for the past several weeks. She states that her insurance coverage ends at approximately 3 months ago so she has been taking reduce doses of her maintenance asthma inhaler for the past several months and she ran out of her maintenance asthma inhaler several weeks ago. She has been utilizing her rescue inhaler several times a day. She states the cough is dry and she denies any sputum production or fever/chills. She reports mild shortness of breath mostly with exertion. She also reports some wheezing mostly at nighttime. She denies any chest pain. She denies any lower extremity edema. She denies any recent travel, surgeries, or immobilization. Patient is also complaining of some left-sided upper back pain for the past 1 week. She denies any known trauma/injury but she has been coughing due to her asthma. She states the pain is sometimes worsened with inspiration. She denies any numbness/weakness/paresthesias of her upper extremities. [facility] Medical History Alopecia Asthma Foot fracture, left Hypothyroid Recurrent major depression Rhinosinusitis Right otitis media Surgical History Encounter for IUD removal Family History Father Asthma Emphysema lung Myocardial infarct Mother COPD (chronic obstructive pulmonary disease) CHF (congestive heart failure) HTN (hypertension) Maternal Grandfather Bladder cancer Maternal Uncle Liver cancer HTN (hypertension) Maternal Uncle HTN (hypertension) Social History Household Members: Family Housing: House Alcohol intake: current Alcohol intake frequency: holidays/special occasions only Patient Tobacco Use Status: Never used Tobacco service: No Current occupational status: employed Sexual orientation: Straight/Heterosexual Gender identity: Female Cognitive needs: No Hearing needs: No Vision needs: No Review of Systems Const All systems reviewed & are unremarkable except as noted in HPI and below Reports no additional complaints Eyes Reports no additional complaints ENT Reports no additional complaints Card Reports no additional complaints Resp Reports no additional complaints GI Reports no additional complaints Reports no additional complaints Musc Reports no additional complaints Skin/Breast Reports system reviewed and no additional complaints, except as documented Neuro Reports no additional complaints Psych Reports no additional complaints Endo Reports no additional complaints Doc/Lymph Reports no additional complaints Aller/Immun Reports no additional complaints Physical Exam Vital Signs: Last Vital Signs Temp 98.3 F 05/15/23 08:15 Pulse 78 05/15/23 08:15 BP 120/72 05/15/23 08:15 Pulse Ox 98 05/15/23 08:15 Oxygen Delivery Method Room Air 05/15/23 08:15 BMI result Body Mass Index 38.7 Const Other: Vital signs reviewed. Constitutional: Non-toxic appearing. No acute distress. Well-developed and well-nourished. HEENT: Normocephalic and atraumatic. Skin: Warm and dry. No rashes or lesions noted. Neck: Full and painless range of motion. No cervical lymphadenopathy. Cardio: Regular rate and rhythm. No murmurs, gallops, or rubs. No lower extremity edema. No JVD. Pulmonary: No respiratory distress. No accessory muscle usage. Clear to auscultation bilaterally without wheezing, crackles, or rhonchi. Gastrointestinal: Soft, nontender, and nondistended in all 4 quadrants. Normoactive bowel sounds in all 4 quadrants. Genitourinary: No CVA tenderness. Musculoskeletal: Normal range of motion in joints throughout the body. No deformity or other signs of injury. She has mild tenderness to palpation and muscle spasm of the left thoracic paraspinal musculature. No midline or spinous process tenderness to palpation. Neuro: Alert and oriented x4. Cranial nerves 2-12 grossly intact. No focal deficits appreciated. Psych: Normal mood and affect. Assessment & Plan Assessment & Plan (1) Shortness of breath: Code(s): R06.02 - Shortness of breath (2) Left-sided thoracic back pain: Code(s): M54.6 - Pain in thoracic spine Qualifiers: Chronicity: acute Qualified Code(s): M54.6 - Pain in thoracic spine Plan This is a 32-year-old female who presented to the walk-in clinic complaining of worsening asthma symptoms for the past several weeks. Patient states her insurance coverage ran out several months ago so she has been taking reduced doses of her maintenance asthma inhaler but she ran out of her inhaler a few weeks ago. The patient has been experiencing worsening shortness of breath, cough, and wheezing since then. On physical examination, her lungs are clear to auscultation bilaterally without wheezing, crackles, or rhonchi. The patient likely has increased asthma symptoms in the setting of noncompliance with her maintenance asthma inhaler. The patient's primary care physician sent a Dulera inhaler to her pharmacy that her insurance has kicked back in and the patient was encouraged to pick this up as soon as possible. I have very low suspicion for acute cardiopulmonary process such as pulmonary embolism (PERC negative), pneumonia (no sputum production or fever/chills), or pleural effusionm pneumothorax, or congestive heart failure given normal lung sounds; however, I will check a chest x-ray as patient is complaining of some mild thoracic back pain worsened with inspiration. The patient very likely has a thoracic paraspinal musculature sprain/strain in the setting of coughing given mild tenderness to palpation and muscle spasm on physical examination. Recommended supportive management such as rest/activity modification, heat to the area, [id number] lidocaine patches, and oral ibuprofen 800 mg 3 times daily with food x5 days. The patient was also given a prescription for oral methocarbamol 750 mg 3 times daily as needed for muscle spasms. The patient was instructed to follow-up here or proceed to the emergency room if she were to develop any persistent or worsening symptoms such as numbness/weakness/paresthesias of her upper extremities, worsening shortness of breath, fever/chills, sputum production, or chest pain. Patient verbalizes her understanding and she is in agreement with the plan. Orders: Orders XR chest 2V Today R06.02 - Shortness of breath Medications: New methocarbamol 750 mg PO TID PRN 14 tabs 0RF muscle spasms Coding Level of Care Code Est Pt Level 3 (12593) Diagnoses Shortness of breath R06.02 Acute left-sided thoracic back pain M54.6 Chronicity: acute
[2023-05-15 08:15] VITALS: BP 120/72; PULSE 78; TEMP 36.8; O2SAT 98; BMI 38.7
== END 2023-05-15 09:12 | disposition home or self-care (01) ==
PROVIDERS: PCP Internal Medicine; Visit Provider Physician Assistant Medical
DX: R06.02 Shortness of breath (principal); M54.6 Pain in thoracic spine
CPT/HCPCS: 99213

== ENCOUNTER 2023-05-15 08:44 | Outpatient (REF) | payer OTHER, SELFPAY ==
--- NOTE | ~2023-05-15 | XR_ITS ---
EXAMINATION: XR CHEST CLINICAL INFORMATION: Shortness of breath COMPARISON: None available. TECHNIQUE: 2 views of the chest were obtained. FINDINGS: No significant abnormality is noted involving the heart, lungs, mediastinum, bony thorax or soft tissues. XR/XR chest 2V IMPRESSION: Unremarkable examination.
== END 2023-05-15 08:45 | disposition home or self-care (01) ==
LOC: HO.HMGCX 08:44
PROVIDERS: Visit Provider Physician Assistant Medical
DX: R06.02 Shortness of breath (principal)
CPT/HCPCS: 71046

== ENCOUNTER 2023-05-29 14:29 | Emergency (ER) | payer OTHER, SELFPAY ==
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
[2023-05-29 15:12] VITALS: BP 149/83; PULSE 84; RESP 20; TEMP 37; O2SAT 100; BMI 37.6
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
[2023-05-29 16:35] LABS: MANUAL DIFF FLAG NO
[2023-05-29 16:37] LABS: Basophils Absolute Auto 0.1 X10*3/uL (0.0-0.2); Basophils Percent Auto 0.9 % (0-2); Eosinophils Absolute Auto 0.3 X10*3/uL (0.0-0.4); Eosinophils Percent Auto 1.9 % (0-4); Hematocrit 41.4 % (37.0-47.0); Hemoglobin 13.7 g/dl (12.0-16.0); Imm Gran Abs Auto 0.04 X10*3/uL (0.00-0.03); Imm Gran Pct Auto 0.3 % (0.0-0.4); Lymphocytes Absolute Auto 2.8 X10*3/uL (1.2-4.9); Lymphocytes Percent Auto 21.9 % (20-40); Mean Corpuscular HGB Conc 33.1 g/dl (31.0-35.0); Mean Corpuscular Hemoglobin 30.4 pg (27.0-33.0); Mean Corpuscular Volume 91.8 fL (80.0-98.0); Monocytes Absolute Auto 0.8 X10*3/uL (0.1-1.2); Monocytes Percent Auto 6.5 % (2-11); Neutrophils Absolute Auto 8.9 x10*3/uL (2.0-8.3); Neutrophils Percent Auto 68.5 % (45-73); Platelet Count 423 X10*3/uL (160-400); Red Blood Count 4.51 X10*6/uL (4.20-5.50); Red Cell Distribution Width 13.1 % (11.0-16.0); White Blood Count 12.9 X10*3/uL (4.8-10.8)
[2023-05-29 16:51] LABS: Appearance Urine Clear; Color Urine Yellow; Glucose Urine UA Negative (Negative); Leukocyte Esterase Urine Negative (Negative); Nitrite Urine Negative (Negative); Urine Blood Negative (Negative); Urine Ketones Negative (Negative); Urine Protein Negative (Neg-Trace)
[2023-05-29 16:52] LABS: UPreg QC Valid YES; Urine Pregnancy NEGATIVE (NEGATIVE)
[2023-05-29 17:02] LABS: Alanine Aminotransferase 30 U/L (0-31); Albumin Level 4.4 g/dL (3.5-5.0); Alkaline Phosphatase 99 U/L (39-117); Anion Gap 13 (12-20); Aspartate Amino Transferase 28 U/L (5-31); Bilirubin Total 0.4 mg/dL (0.0-1.0); Blood Urea Nitrogen 13 mg/dL (9-16); Calcium 9.8 mg/dL (8.4-10.2); Carbon Dioxide 26 mmol/L (22-29); Chloride 107 mmol/L (96-108); Creatinine Clr Calc Pharmacy 90.5; Estimated Glomerular Filt Rate > 60; Glucose Random 90 mg/dL (60-115); HCG Quantitative < 2 mIU/mL; Lipase 23 U/L (8-78); Sodium 141 mmol/L (135-145); Total Protein 8.2 g/dL (6.5-8.0)
[2023-05-29] MEDS: iohexoL 350 MG/ML 100 ML INFUS..BTL 85 ML IV (17:27)
== END 2023-05-29 19:24 | disposition home or self-care (01) ==
PROVIDERS: Physician Assistant Medical; Registered Nurse Emergency; Emergency Provider Emergency Medicine; PCP Internal Medicine
DX: S36.30XA Unspecified injury of stomach, initial encounter (principal); R10.32 Left lower quadrant pain; R11.2 Nausea with vomiting, unspecified; Y04.2XXA Assault by strike against or bumped into by another person, initial encounter; Y93.9 Activity, unspecified; Y92.219 Unspecified school as the place of occurrence of the external cause; Y99.0 Civilian activity done for income or pay; Z79.899 Other long term (current) drug therapy
CPT/HCPCS: 36415; 74177; 80053; 81003; 81025; 83690; 84702; 85025; 99284; Q9967

== ENCOUNTER → 2023-06-02 08:28 | Outpatient (BNVA) | payer OTHER, SELFPAY | PROVIDERS: PCP Internal Medicine; Visit Provider Physician Assistant Medical | DX: S30.1XXA Contusion of abdominal wall, initial encounter (principal); S39.012A Strain of muscle, fascia and tendon of lower back, initial encounter; W50.0XXA Accidental hit or strike by another person, initial encounter; Y93.02 Activity, running | CPT/HCPCS: 99203 ==

== ENCOUNTER → 2023-06-09 09:15 | Outpatient (BNVA) | payer OTHER, SELFPAY | PROVIDERS: PCP Internal Medicine; Visit Provider Physician Assistant Medical | DX: S39.012A Strain of muscle, fascia and tendon of lower back, initial encounter (principal); W50.0XXA Accidental hit or strike by another person, initial encounter | CPT/HCPCS: 99213 ==

== ENCOUNTER 2023-06-23 08:15 | Outpatient (AMB) | payer OTHER, SELFPAY ==
[2023-06-23 08:20] VITALS: BP 118/62; PULSE 74; O2SAT 98; BMI 37.6
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
== END 2023-06-23 09:05 | disposition home or self-care (01) ==
PROVIDERS: PCP Internal Medicine; Visit Provider Internal Medicine
DX: E03.9 Hypothyroidism, unspecified (principal); F33.9 Major depressive disorder, recurrent, unspecified; D64.9 Anemia, unspecified; J45.909 Unspecified asthma, uncomplicated; E66.9 Obesity, unspecified; K44.9 Diaphragmatic hernia without obstruction or gangrene; K42.9 Umbilical hernia without obstruction or gangrene; F41.1 Generalized anxiety disorder
CPT/HCPCS: 99214

== ENCOUNTER 2023-06-23 09:09 | Outpatient (REF) | payer OTHER, SELFPAY ==
[2023-06-23 09:25] LABS: MANUAL DIFF FLAG NO
[2023-06-23 10:01] LABS: Basophils Absolute Auto 0.1 X10*3/uL (0.0-0.2); Basophils Percent Auto 0.8 % (0-2); Eosinophils Absolute Auto 0.3 X10*3/uL (0.0-0.4); Eosinophils Percent Auto 2.5 % (0-4); Hematocrit 42.3 % (37.0-47.0); Hemoglobin 13.9 g/dl (12.0-16.0); Imm Gran Abs Auto 0.03 X10*3/uL (0.00-0.03); Imm Gran Pct Auto 0.3 % (0.0-0.4); Lymphocytes Absolute Auto 2.4 X10*3/uL (1.2-4.9); Lymphocytes Percent Auto 23.7 % (20-40); Mean Corpuscular HGB Conc 32.9 g/dl (31.0-35.0); Mean Corpuscular Hemoglobin 29.9 pg (27.0-33.0); Mean Platelet Volume 11.7 fL (9.4-12.3); Monocytes Absolute Auto 0.9 X10*3/uL (0.1-1.2); Monocytes Percent Auto 8.8 % (2-11); Neutrophils Absolute Auto 6.4 x10*3/uL (2.0-8.3); Neutrophils Percent Auto 63.9 % (45-73); Platelet Count 403 X10*3/uL (160-400); Red Blood Count 4.65 X10*6/uL (4.20-5.50); Red Cell Distribution Width 12.9 % (11.0-16.0); White Blood Count 10.1 X10*3/uL (4.8-10.8)
[2023-06-23 10:31] LABS: Alanine Aminotransferase 42 U/L (0-31); Albumin Level 4.5 g/dL (3.5-5.0); Alkaline Phosphatase 120 U/L (39-117); Anion Gap 11 (12-20); Aspartate Amino Transferase 27 U/L (5-31); Bilirubin Total 0.3 mg/dL (0.0-1.0); Blood Urea Nitrogen 13 mg/dL (9-16); Calcium 9.6 mg/dL (8.4-10.2); Carbon Dioxide 27 mmol/L (22-29); Chloride 108 mmol/L (96-108); Cholesterol 152 mg/dL (<200); Estimated Glomerular Filt Rate > 60; Glucose Random 92 mg/dL (60-115); HDL Cholesterol 43 mg/dL (>40); LDL Cholesterol Calculated 98 mg/dL (<100); Potassium 4.5 mmol/L (3.3-5.1); Sodium 141 mmol/L (135-145); Total Protein 7.5 g/dL (6.5-8.0); Triglycerides 57 mg/dL (<150)
[2023-06-23 10:46] LABS: Free T4 (Free Thyroxine) 1.25 ng/dL (0.71-1.85); Thyroid Stimulating Hormone 4.61 uIU/mL (0.32-4.0)
[2023-06-23 10:58] LABS: Folate 9.6 ng/mL (> or = 4.0); Vitamin B12 600 pg/mL (200-900)
== END 2023-06-23 09:10 | disposition home or self-care (01) ==
LOC: HO.LAB 09:09
PROVIDERS: PCP Internal Medicine; Visit Provider Internal Medicine
DX: E03.9 Hypothyroidism, unspecified (principal); E78.00 Pure hypercholesterolemia, unspecified
CPT/HCPCS: 36415; 80053; 80061; 82306; 82607; 82746; 84439; 84443; 85025

== ENCOUNTER 2023-07-03 07:52 | Outpatient (REF) | payer OTHER, SELFPAY ==
[2023-07-03 09:33] LABS: MANUAL DIFF FLAG NO
[2023-07-03 09:37] LABS: Basophils Absolute Auto 0.1 X10*3/uL (0.0-0.2); Eosinophils Absolute Auto 0.1 X10*3/uL (0.0-0.4); Eosinophils Percent Auto 1.2 % (0-4); Hematocrit 41.5 % (37.0-47.0); Hemoglobin 13.4 g/dl (12.0-16.0); Imm Gran Abs Auto 0.02 X10*3/uL (0.00-0.03); Imm Gran Pct Auto 0.2 % (0.0-0.4); Lymphocytes Absolute Auto 1.9 X10*3/uL (1.2-4.9); Mean Corpuscular HGB Conc 32.3 g/dl (31.0-35.0); Mean Corpuscular Hemoglobin 29.5 pg (27.0-33.0); Mean Corpuscular Volume 91.2 fL (80.0-98.0); Monocytes Percent Auto 8.8 % (2-11); Neutrophils Absolute Auto 8.1 x10*3/uL (2.0-8.3); Neutrophils Percent Auto 71.8 % (45-73); Platelet Count 436 X10*3/uL (160-400); Red Blood Count 4.55 X10*6/uL (4.20-5.50); Red Cell Distribution Width 13.1 % (11.0-16.0); White Blood Count 11.3 X10*3/uL (4.8-10.8)
[2023-07-03 10:00] LABS: Alanine Aminotransferase 34 U/L (0-31); Albumin Level 4.2 g/dL (3.5-5.0); Alkaline Phosphatase 112 U/L (39-117); Anion Gap 13 (12-20); Aspartate Amino Transferase 21 U/L (5-31); Bilirubin Direct 0.2 mg/dL (0.0-0.5); Bilirubin Total 0.6 mg/dL (0.0-1.0); Blood Urea Nitrogen 12 mg/dL (9-16); Calcium 9.8 mg/dL (8.4-10.2); Carbon Dioxide 25 mmol/L (22-29); Chloride 107 mmol/L (96-108); Cholesterol 158 mg/dL (<200); Estimated Glomerular Filt Rate > 60; Glucose Random 87 mg/dL (60-115); HDL Cholesterol 49 mg/dL (>40); LDL Cholesterol Calculated 99 mg/dL (<100); Sodium 141 mmol/L (135-145); Total Protein 7.5 g/dL (6.5-8.0); Triglycerides 50 mg/dL (<150)
[2023-07-03 13:12] LABS: Reflex LDLD? No
[2023-07-05 22:28] LABS: TS Negative Control Passed; TS Panel A 0; TS Panel B 0; TS Positive Control Passed; TSpotTB Negative (Negative)
== END 2023-07-03 07:53 | disposition home or self-care (01) ==
LOC: HO.LAB 07:52
PROVIDERS: PCP Internal Medicine; Visit Provider Physician Assistant Medical
DX: L63.8 Other alopecia areata (principal); L98.8 Other specified disorders of the skin and subcutaneous tissue; Z79.899 Other long term (current) drug therapy
CPT/HCPCS: 36415; 80048; 80061; 80076; 85025; 86481

== ENCOUNTER 2023-07-08 08:00 | Outpatient (RCR) | payer OTHER, SELFPAY ==
--- NOTE | 2023-06-11 11:29 | MHC.PT.EP ---
[facility] [place] Office [place] Office [place] Office [address] Angelika Sifuentes [address] [phone] F: [phone] F: [phone] F: [phone] F: [phone] Physical Therapy Plan of Care Date of Evaluation: 06/11/23 Date of Surgery: N/A Diagnosis: lumbar strain (RL) Assessment: pt is a 32 y/o female presenting to physical therapy w/ referring diagnosis of lumbar strain. Impairments include pain, decreased range of motion, decreased strength, impaired functional mobility, impaired postural awareness, and altered ambulation mechanics. pt is a good candidate for skilled PT due to age, potential remediation of impairments, typical disease/condition progression and prognosis, comorbidities, and motivation. pt would benefit from skilled PT intervention to provide a tailored strengthening and stretching exercise program, functional training, gait training, postural re-training, neuromuscular re-education, modalities as needed for pain, equipment safety demonstration. Frequency and Duration: The patient will be seen 2x/wk for 4 wks Short Term Goals: pt will be I w/ HEP to promote self-management of condition. pt will demo proper sitting posture w/ lumbar roll to promote neutral spine w/ seated ADLs. Loan Review Officer Goals: pt will improve lumbar flexion to at least 75% to promote ease in lower body dressing. pt will demo proper lifting mechanics of 15# x5 reps w/o verbal cueing to promote return to functional lifting. Treatment Plan: Modalities to reduce pain, spasms and effusion. Manual therapy to restore motion and function. Therapeutic exercise to improve strength and flexibility. Neuromuscular re-education for posture and balance. Therapeutic activities to return to functional activities of daily living. Electronically signed by: Jaimee Mccabe PT, DPT Please sign and return to therapist. Thank you for your referral.
--- NOTE | 2023-07-09 15:36 | MHC.PT.DC ---
[facility] [place] Office [place] Office [place] Office [address] Angelika Sifuentes [address] [phone] F: [phone] F: [phone] F: [phone] F: [phone] Physical Therapy Discharge Report Diagnosis: lumbar strain (RL) Date of Surgery: N/A Date of Evaluation: 06/11/23 Date of Discharge: 07/09/23 Treatments to Date: 8 Cancellations to Date: 0 No Shows to Date: 0 Discharge Status: Achieved Goals Improved Function Independent with HEP Discharge Summary: Pt has made excellent progress since SOC. She has had a decrease in pain and an improvement in body mechanics. She has met her STGs and LTGs. She is independent and compliant with her HEP. Pt is being D/C to HEP at this time. Provided pt with printed, updated copy of HEP and pt verbalized understanding. Pt reports no further questions or concerns for PT at time of D/C Electronically signed by: Guerda Sher, PT, DPT Please sign and return to therapist. Thank you for your referral.
== END 2023-07-09 15:35 | disposition home or self-care (01) ==
LOC: HO.PT 08:00
PROVIDERS: PCP Internal Medicine; Visit Provider Physician Assistant Medical
DX: S39.012D Strain of muscle, fascia and tendon of lower back, subsequent encounter (principal)
CPT/HCPCS: 97110; 97162; 97530

== ENCOUNTER 2023-10-23 10:42 | Outpatient (AMB) | payer OTHER, SELFPAY ==
[2023-10-23 10:56] VITALS: BP 110/68; PULSE 69; O2SAT 98; BMI 38.2
--- NOTE | 2023-10-23 10:56 | A.OFFPC_ITS ---
Vital Signs 10/23/23 10:56 Height 4 ft 10 in Weight 183 lb BMI 38.2 BP 110/68 Blood Pressure Location Lt brachial Position Sitting Pulse 69 Pulse Source Pulse Oximeter Pulse Oximetry (%) 98 Oxygen Delivery Method Room Air Intake Visit Reasons: Annual exam Intake Note: Left knee discomfort. Allergies Seasonal Allergies Allergy (Verified 10/23/23 10:56) ASTHMA Medication List - Last Reconciled 10/23/23 by Keven Rod MD albuterol sulfate 90 mcg/actuation 1 inh inhalation QID PRN 30 days baricitinib (Olumiant) 2 mg PO DAILY bupropion HCl XL (Wellbutrin XL) 150 mg PO QAM cetirizine 10 mg PO DAILY PRN hydroxyzine HCl 10 mg PO BID PRN levothyroxine 150 mcg PO DAILY 30 days mometasone-formoterol 200-5 mcg/actuation (Dulera) 2 puffs inhalation BID [multivitamin PO DAILY] [Probiotic 1 tab PO DAILY] Tobacco use date assessed: 06/23/23 Dental Screening Dental Screen Date: 06/23/23 HPI Annual exam HPI Details 33-year-old obese female with hypothyroi dism asthma recurrent major depression coming in for follow-up. Last seen in 07/01/2023 [facility] Medical History Alopecia Asthma Foot fracture, left Hypothyroid Recurrent major depression Rhinosinusitis Right otitis media Surgical History Encounter for IUD removal Family History Father Asthma Emphysema lung Myocardial infarct Mother COPD (chronic obstructive pulmonary disease) CHF (congestive heart failure) HTN (hypertension) Maternal Grandfather Bladder cancer Maternal Uncle Liver cancer HTN (hypertension) Maternal Uncle HTN (hypertension) Social History (Updated 10/23/23 @ 11:22 by Keven Rod MD) Household Members: Family Housing: House Alcohol intake: current Alcohol intake frequency: holidays/special occasions only Comment: once a month 2 drinks Patient Tobacco Use Status: Never used Tobacco e-Cigarette/Vaping Use: Never Used Second Hand Smoke Exposure: No service: No Current occupational status: employed Sexual orientation: Straight/Heterosexual Gender identity: Female Cognitive needs: No Hearing needs: No Vision needs: No Questionnaire PHQ-9 Over the last 2 weeks, how often have you been bothered by any of the following problems? 1. Little interest or pleasure in doing things: not at all 2. Feeling down, depressed, or hopeless: not at all 3. Trouble falling or staying asleep, or sleeping too much: not at all 4. Feeling tired or having little energy: not at all 5. Poor appetite or overeating: not at all 6. Feeling bad about yourself - or that you are a failure or have let yourself or your family down: not at all 7. Trouble concentrating on things, such as reading the newspaper or watching television: not at all 8. Moving or speaking so slowly that other people could have noticed. Or the opposite - being so fidgety or restless that you have been moving around a lot more than usual: not at all 9. Thoughts that you would be better off or of hurting yourself in some way: not at all Total score: 0 Depression Screening Interpretation: Negative Depression Screening Done: Yes 18292 - PHQ-9 Billing: Yes Source: Developed by Drs. Alhaji Lindo, Radha Antonio, Myke Brizuela and colleagues, with an educational isa from [employer]. Thrive Questionnaire Date Thrive assessed: 06/23/23 AUDIT C Alcohol Use Questionnaire (AUDIT-C) 1. How often do you have a drink containing alcohol?: 2-4 times a month 2. How many drinks containing alcohol do you have on a typical day when you are drinking?: 1 or 2 3. How often do you have six or more drinks on one occasion?: Never Total Score: 2 Score Reviewed/Action Taken: No MARGI-7 AMB Questionnaire MARGI-7 Date MARGI - 7 assessed: 10/23/23 Feeling nervous, anxious, or on edge: 1 = Several days Not being able to stop or control worryin = Several days Worrying too much about different things: 1 = Several days Trouble relaxin = Not at all Being so restless that it is hard to sit still: 0 = Not at all Becoming easily annoyed or irritable: 0 = Not at all Feeling afraid as if something awful might happen: 0 = Not at all Total MARGI-7 score (0-4 normal; 5-9 mild; 10-14 moderate; 15-21 severe): 3 Source: Developed by Drs. Alhaji Lindo, Radha Antonio, Myke Brizuela and colleagues, with an educational isa from [employer]. Review of Systems Const Denies poor appetite and Denies weakness Eyes Denies no additional complaints ENT Reports Normal hearing present, Denies dizziness, Denies nasal congestion, Denies tinnitus and Denies sore throat Card Denies chest pain, Denies syncope, Denies rapid heart rate and Denies dyspnea Resp Denies cough and Denies dyspnea GI Denies change in stool character, Reports constipation, Denies diarrhea, Denies nausea and Denies vomiting Denies urinary frequency, Denies difficulty voiding and Denies dysuria Neuro Reports Normal hearing present, Denies confusion, Denies dizziness, Denies syncope and Denies weakness Psych Denies confusion Physical exam (Primary Care) Vital Signs: Last Vital Signs Pulse 69 10/23/23 10:56 BP 110/68 10/23/23 10:56 Pulse Ox 98 10/23/23 10:56 Oxygen Delivery Method Room Air 10/23/23 10:56 BMI result Body Mass Index 38.2 Tobacco/Smoking Status: Tobacco use Status Tobacco use date assessed 06/23/23 10/23/23 10:57 Patient Tobacco Use Status Never used Tobacco 10/23/23 10:57 e-Cigarette/Vaping Use Never Used 10/23/23 10:57 PHQ-9: PHQ-9 Score PHQ-9: Total score 0 10/23/23 11:02 Depression Screening Interpretation: Negative Thrive Assessment: Date of Thrive Assessment Date Thrive assessed 06/23/23 10/23/23 10:57 Const General: No confusion Orientation/consciousness: No confusion HENMT Head: Yes normocephalic Ears: external ears normal and TM's normal bilaterally Face and sinus: Yes normal facial exam Mouth: moist mucous membranes Throat: Yes tonsils normal Eyes Conjunctivae: conjunctivae normal Pupils: Equal, round and reactive pupils present and Pupil accommodation reflex normal Direct Ophthalmoscopy: normal light reflex Neck Neck: No lymphadenopathy Thyroid: Thyroid normal Chest Chest palpation & inspection: normal inspection of the chest Resp Effort & Inspection: normal respiratory effort and no audible wheezes Auscultation: clear to auscultation bilaterally, no crackles, no wheezes and lung sounds not diminished Cardio Rate: regular rate Rhythm: regular rhythm Peripheral pulses: radial pulses present and dorsalis pedis present GI Palpation (GI): no masses Auscultation: normal bowel sounds and normoactive bowel sounds Rectal Exam - Female: deferred Skin General skin exam: no rashes or lesions noted Rashes: no rashes Neuro General: No confusion Cranial nerves: Yes Equal, round and reactive pupils present and Yes Normal hearing present Cognition (Neuro): normal cognition Gait exam (Neuro): Normal gait present Motor exam (neuro): 5/5 motor strength present throughout Deep tendon reflexes (DTR's): Right brachioradialis reflex intensity grade: 2+, Left brachioradialis reflex intensity grade: 2+, Right patellar reflex intensity grade: 2+ and Left patellar reflex intensity grade: 2+ Extrem General: No edema Assessment and Plan Assessment & Plan (1) Annual physical exam: Code(s): Z00.00 - Encounter for general adult medical examination without abnormal findings Plan: Patient is advised to eat healthy, keep well hydrated, keep active and have adequate sleep. (2) Hypothyroid: Code(s): E03.9 - Hypothyroidism, unspecified Plan: Continue with the thyroid medication but will need repeat blood work (3) Asthma: Code(s): J45.909 - Unspecified asthma, uncomplicated Plan: Continue with the albuterol inhaler as needed and on Dulera. Remember to rinse mouth after using Dulera (4) Obesity (BMI 30-39.9): Code(s): E66.9 - Obesity, unspecified Plan: Diet and exercise (5) Alopecia: Comment: Dr. Le on scalp injections and ointment Code(s): L65.9 - Nonscarring hair loss, unspecified Plan: Continue to follow-up with dermatology (6) Recurrent major depression: Code(s): F33.9 - Major depressive disorder, recurrent, unspecified Plan: On hydroxyzine and Bue per prior on. Coding Level of Care Code Est Pt Prev Care 18-39y(48202) Diagnoses Annual physical exam Z00.00 Hypothyroid E03.9 Asthma J45.909 Obesity (BMI 30-39.9) E66.9 Alopecia L65.9 Recurrent major depression F33.9
== END 2023-10-23 11:35 | disposition home or self-care (01) ==
PROVIDERS: PCP Internal Medicine; Visit Provider Internal Medicine
DX: Z00.00 Encounter for general adult medical examination without abnormal findings (principal); E03.9 Hypothyroidism, unspecified; F33.9 Major depressive disorder, recurrent, unspecified; J45.909 Unspecified asthma, uncomplicated; E66.9 Obesity, unspecified; L65.9 Nonscarring hair loss, unspecified
CPT/HCPCS: 99395

== ENCOUNTER 2023-10-31 10:22 | Outpatient (REF) | payer OTHER, SELFPAY ==
[2023-10-31 11:53] LABS: Free T4 (Free Thyroxine) 1.52 ng/dL (0.71-1.85); Thyroid Stimulating Hormone 0.41 uIU/mL (0.32-4.0)
== END 2023-10-31 10:23 | disposition home or self-care (01) ==
LOC: HO.LAB 10:22
PROVIDERS: PCP Internal Medicine; Visit Provider Internal Medicine
DX: E03.9 Hypothyroidism, unspecified (principal)
CPT/HCPCS: 36415; 84439; 84443

== ENCOUNTER 2023-11-09 17:37 | Emergency (ER) | payer OTHER, SELFPAY ==
--- NOTE | ~2023-11-09 | XR_ITS ---
EXAMINATION: XR KNEE, LEFT CLINICAL INFORMATION: Pain COMPARISON: None available. TECHNIQUE: 5 views of the left knee. FINDINGS: No fracture or joint effusion. Alignment is anatomic. Joint spaces are maintained. No abnormal soft tissue calcification. XR/XR knee LT 3V IMPRESSION: Normal left knee.
[2023-11-09 17:46] VITALS: BP 122/71; PULSE 98; RESP 16; TEMP 36.4; O2SAT 99; BMI 37.7
--- NOTE | 2023-11-09 17:48 | ED.LOWEXIN ---
HPI - Extremity Injury (Lower) General Chief Complaint: Extremity Injury, Lower Stated Complaint: left knee pain no inj Time Seen by Provider: 11/09/23 22:37 Source: patient Mode of arrival: ambulatory Limitations: no limitations History of Present Illness ED Provider: TAMMI HARRELL Narrative: 33 yo female with PMH of hypothyroidism here with c/o L knee pain aching medial aspect has had clicking and odd feeling for months without known injury she has seen PCP who brushes her off but she feels something is wrong when she walks shooting pain goes down from medial joint line. complaint: other (knee pain) Onset (ago): month(s) Injury: Left: knee Severity: moderate Relieving factors: rest Exacerbating factors: movement Associated symptoms: other (painful to walk) Other symptoms: other (clicking feeling) Related Data Home Medications ?Medication ?Instructions ?Recorded ?Confirmed Probiotic 1 tab PO DAILY 10/18/20 10/23/23 multivitamin PO DAILY 10/21/21 10/23/23 baricitinib 2 mg tablet (Olumiant) 2 mg PO DAILY 10/23/23 10/23/23 cetirizine 10 mg tablet 10 mg PO DAILY PRN 10/23/23 10/23/23 Previous Rx's ?Medication ?Instructions ?Recorded hydroxyzine HCl 10 mg tablet 10 mg PO BID PRN anxiety #14 tabs 11/19/22 bupropion HCl 150 mg 24 hr tablet, 150 mg PO QAM #30 tabs 02/17/23 extended release (Wellbutrin XL) levothyroxine 150 mcg tablet 150 mcg PO DAILY 30 days #90 tabs 06/05/23 mometasone-formoterol HFA 200 2 puff inhalation BID #13 grams 06/23/23 mcg-5 mcg/actuation aerosol inhaler (Dulera) albuterol sulfate 90 mcg/actuation 1 inh inhalation QID PRN shortness 08/21/23 aerosol inhaler of breath or wheezing 30 days #8.5 grams cyclobenzaprine 10 mg tablet 10 mg PO TID PRN muscle spasm #20 11/09/23 tabs prednisone 20 mg tablet 20 mg PO DAILY 3 days #3 tabs 11/09/23 Allergies Allergy/AdvReac Type Severity Reaction Status Date / Time Seasonal Allergies Allergy ASTHMA Verified 11/09/23 17:49 Review of Systems Review of Systems: Constitutional : No Fever, No Chills Cardiovascular : No Chest Pain, No SOB Respiratory : No Cough, No Dyspnea Gastrointestinal : No Nausea, No Vomiting, No Diarrhea, No abdominal Pain Musculoskeletal : positive joint pain, No Myalgias, No Joint Swelling Skin : No Skin lacerations, No rash Neuro : No Weakness, No Numbness All other systems reviewed and are negative [facility] Past Medical History Attestation statement: The following information was validated with the patient. Source: old records reviewed Medical History Right otitis media Foot fracture, left Recurrent major depression Rhinosinusitis Asthma Alopecia Hypothyroid Surgical History Encounter for IUD removal Family History Family History Father Asthma Emphysema lung Myocardial infarct Mother COPD (chronic obstructive pulmonary disease) CHF (congestive heart failure) HTN (hypertension) Maternal Grandfather Bladder cancer Maternal Uncle Liver cancer HTN (hypertension) Maternal Uncle HTN (hypertension) Social History Social History Household Members: Family Housing: House Alcohol intake: current Alcohol intake frequency: holidays/special occasions only Comment: once a month 2 drinks Patient Tobacco Use Status: Never used Tobacco e-Cigarette/Vaping Use: Never Used Second Hand Smoke Exposure: No Advance Directives: No Advance Directives Information Provided: No service: No Current occupational status: employed Sexual orientation: Straight/Heterosexual Gender identity: Female Cognitive needs: No Hearing needs: No Vision needs: No Physical Exam Vital Signs: Vital Signs: Last Vital Signs Temp 97.6 F 11/09/23 17:46 Pulse 98 11/09/23 17:46 Resp 16 11/09/23 17:46 BP 122/71 11/09/23 17:46 Pulse Ox 99 11/09/23 17:46 O2 Del Method Room Air 11/09/23 17:46 BMI result Body Mass Index 37.7 Appearance: Alert. Oriented X3. No acute distress. Eyes: Pupils equal, round and reactive to light. ENT: Pharynx normal. Neck: Normal inspection. CVS: Pulses normal. Respiratory: No respiratory distress. Abdomen: atraumatic Skin: Skin warm and dry. Normal skin color. Extremities: No lower extremity edema. L knee ttp along medial joint line with ROM and apley maneuver distal NV intact, no effusion has some ttp along pes anserine area but no redness, swelling there is pinpoint ttp Neuro: Oriented X 3. No motor deficit. No sensory deficit. Course Course Course Narrative: This is an RME: Additional HPI, ROS, PE not included below will be deferred to primary provider. RME assessment and note performed by: Ila Ospina PA-C This is a [id number] who presents to the ER with complaints of left knee pain. No injury. Ambulating with steady gait. Spends alot of time on her feet Plan: Left knee xray ordered. Medical Decision Making Medical Decision Making MDM Narrative: 33 yo female with PMH of hypothyroidism here with c/o L knee pain and cannot get answers from PCP has clicking noise and testing concerning for possible meniscus injury she could also just have a quad tendonitis or bursitis. Will obtain xray start on low dose steroids and refer to orthopedics Differential Diagnosis Differential Diagnoses: The differential diagnosis associated with the presentation includes quad tendonitis or bursitis, internal derangement of knee Independent Interpretation I performed an independent interpretation of an: Plain X-Ray (normal ) Radiology Impression Discussion of test interpretation with radiology: I have reviewed the radiologist's reading. External Record Review External record reviewed: Office record Prescription Management I considered prescription management with: Other Discharge Plan Discharge Clinical Impression: Arthralgia Qualifiers: Joint pain location: knee Laterality: left Qualified Code(s): M25.562 - Pain in left knee Patient Disposition: Home, Self-Care Instructions: Arthralgia (ED) Additional Instructions: could be tendonitis, bursitis vs internal injury of the knee you need to see orthopedics please call and follow up to schedule return for any worsening or concerning symptoms FINDINGS: No fracture or joint effusion. Alignment is anatomic. Joint spaces are maintained. No abnormal soft tissue calcification. XR/XR knee LT 3V IMPRESSION: Normal left knee. Prescriptions: New cyclobenzaprine 10 mg tablet 10 mg PO TID PRN (Reason: muscle spasm) Qty: 20 0RF prednisone 20 mg tablet 20 mg PO DAILY 3 Days Qty: 3 0RF No Action bupropion HCl [Wellbutrin XL] 150 mg tablet extended release 24 hr 150 mg PO QAM Qty: 30 2RF levothyroxine 150 mcg tablet 150 mcg PO DAILY 30 Days Qty: 90 2RF albuterol sulfate 90 mcg/actuation HFA aerosol inhaler 1 inh inhalation QID PRN (Reason: shortness of breath or wheezing) 30 Days Qty: 8.5 0RF Probiotic 1 tab PO DAILY multivitamin PO DAILY hydroxyzine HCl 10 mg tablet 10 mg PO BID PRN (Reason: anxiety) Qty: 14 0RF Olumiant 2 mg tablet 2 mg PO DAILY Rx Instructions: Dr. [facility] Dulera 200-5 mcg/actuation HFA aerosol inhaler 2 puff inhalation BID Qty: 13 11RF cetirizine 10 mg tablet 10 mg PO DAILY PRN Referrals: Lakshmi Workman PA-C [[facility]] - Stand Alone Forms: Work/School Release Print Language: Kyrgyz
[2023-11-09 23:31] VITALS: BP 111/62; PULSE 76; RESP 17; TEMP 36.8; O2SAT 100
[2023-11-09 23:36] VITALS: BP 111/62; PULSE 76; RESP 17; TEMP 36.8; O2SAT 100
== END 2023-11-09 23:37 | disposition home or self-care (01) ==
PROVIDERS: Emergency Provider Emergency Medicine; PCP Internal Medicine
DX: M25.562 Pain in left knee (principal); Z79.899 Other long term (current) drug therapy
CPT/HCPCS: 73562; 99283; 99284

== ENCOUNTER 2023-11-16 13:11 | Outpatient (AMB) | payer OTHER, SELFPAY ==
[2023-11-16 13:35] VITALS: BMI 36.2
--- NOTE | 2023-11-16 13:35 | MHC.OFFVIS ---
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 Marshall is a 33-year-old female who presents with complaints of progressively worsening left knee pain and giving way. The patient states that her symptoms have gotten worse over the last year in spite of continued non operative treatments. She has failed the last 3 months of a home exercise program. She states that her left knee will give out several times per day. She has taken Tylenol, anti-inflammatory medicines and muscle relaxants which gave her minimal relief. She did borrow a knee brace from a friend which gave her some relief of her symptoms of instability but no relief of her pain. The patient states that she needs to return the brace to her friend. Allergies Seasonal Allergies Allergy (Verified 11/16/23 13:41) ASTHMA [facility] Medical History Right otitis media Foot fracture, left Recurrent major depression Rhinosinusitis Asthma Alopecia Hypothyroid Surgical History Encounter for IUD removal Family History Father Asthma Emphysema lung Myocardial infarct Mother COPD (chronic obstructive pulmonary disease) CHF (congestive heart failure) HTN (hypertension) Maternal Grandfather Bladder cancer Maternal Uncle Liver cancer HTN (hypertension) Maternal Uncle HTN (hypertension) Social History (Updated 11/16/23 @ 13:42 by ERICH Huddleston) Household Members: Family Housing: House Alcohol intake: current Alcohol intake frequency: holidays/special occasions only Comment: once a month 2 drinks Patient Tobacco Use Status: Never used Tobacco e-Cigarette/Vaping Use: Never Used Second Hand Smoke Exposure: No service: No Current occupational status: employed Current occupation: director at [employer] Sexual orientation: Straight/Heterosexual Gender identity: Female Cognitive needs: No Hearing needs: No Vision needs: No Physical Exam Vital Signs: BMI result Body Mass Index 36.2 Const Other: Well-nourished well-developed very friendly female awake alert and oriented x3 in no acute distress Extrem Other: Bilateral lower extremity examination shows good capillary refill, no skin lesions noted, normal sensation light touch Left knee examination shows a minimal effusion, minimal crepitus with range of motion, tenderness over her medial joint line, positive Reinier's test, no instability Results Reviewed Results Reviewed: Standing full weight-bearing x-rays of the patient's left knee show minimal joint space narrowing, no acute bony abnormalities Assessment & Plan Assessment & Plan (1) Left knee pain: Code(s): M25.562 - Pain in left knee Category: Medical Plan Ms. Marshall presents with progressively worsening left knee pain and mechanical symptoms most likely due to a tear of her medial meniscus. Thus, I will send the patient for an MRI of her left knee for further evaluation. I will see her back once the MRI is completed to discuss the findings and treatment options. Because of her symptoms of instability I also had her fitted for a knee brace. I do find that the knee brace is a medical necessity to help prevent future falls. Feel free to call me at any time should questions regarding her orthopedic management arise. Thank you very much for asking me to see this very friendly patient. I spent 21 minutes in reviewing the patient's records and imaging studies, seeing the patient and documenting in the medical record. Orders: Orders MR knee LT wo con Today M25.562 - Pain in left knee Coding Level of Care Code New Pt Level 3 (01597) Diagnoses Left knee pain M25.562
== END 2023-11-16 13:53 | disposition home or self-care (01) ==
PROVIDERS: PCP Internal Medicine; Visit Provider Orthopaedic Surgery
DX: M25.562 Pain in left knee (principal)
CPT/HCPCS: 99203

== ENCOUNTER → 2023-11-16 13:11 | Outpatient (BNVA) | payer OTHER, SELFPAY | PROVIDERS: PCP Internal Medicine; Visit Provider Orthopaedic Surgery | DX: M25.562 Pain in left knee (principal) | CPT/HCPCS: 99202 ==

== ENCOUNTER 2023-12-26 19:04 | Outpatient (REF) | payer OTHER, SELFPAY ==
--- NOTE | ~2023-12-26 | MR_ITS ---
EXAMINATION: MR KNEE WITHOUT CONTRAST, LEFT CLINICAL INFORMATION: Left knee pain. COMPARISON: None available. TECHNIQUE: MRI of the knee without contrast was performed using routine sequences on a high-field scanner. FINDINGS: MENISCI: Medial Meniscus: Intact. Lateral Meniscus: Intact. LIGAMENTS: Cruciate: Intact. Collateral: Intact. EXTENSOR MECHANISM: Mild edema signal in the quadriceps fat pad. Quadriceps and patellar tendons are intact. No tears. ARTICULAR CARTILAGE/BONE: Patellofemoral Compartment: Articular cartilage is normal. Normal trochlear morphology. TT-TG distance is 4 mm, normal. Medial Compartment: Normal. Lateral Compartment: Normal. JOINT FLUID AND BURSAE: No effusion. Small Solares's cyst. Mild prepatellar and superficial infrapatellar subcutaneous edema. No bursitis. MR/MR knee LT wo con IMPRESSION: 1. Intact ligaments and menisci. No acute osseous or articular abnormalities. 2. Mild edema signal in the quadriceps fat pad as can be seen with fat pad impingement. 3. Small Solares's cyst. Electronically signed by: Ti Aldana MD 12/28/2023 04:32 PM EDT
== END 2023-12-26 19:05 | disposition home or self-care (01) ==
LOC: HO.MRI 19:04
PROVIDERS: PCP Internal Medicine; Visit Provider Orthopaedic Surgery
DX: M25.562 Pain in left knee (principal)
CPT/HCPCS: 73721

== ENCOUNTER 2024-01-13 07:37 | Outpatient (AMB) | payer OTHER, SELFPAY ==
--- NOTE | 2024-01-13 07:38 | MHC.OFFVIS ---
Vital Signs 01/13/24 07:41 Height 4 ft 10 in Weight 173 lb BMI 36.2 Intake Visit Reasons: MRI Review of left knee Intake Note: Yanira is a 33 year old female who presents today for a MRI review of her left knee. She describes her discomfort as achy in nature. She denies any locking or giving way. She does wear a brace at time which gives her fairly good relief. She has tried Tylenol and ibuprofen which gave her minimal relief. Allergies Seasonal Allergies Allergy (Verified 01/13/24 07:41) ASTHMA Medication List - Last Reconciled 01/13/24 by Shadi Hoover MD albuterol sulfate 90 mcg/actuation 1 inh inhalation QID PRN 30 days baricitinib (Olumiant) 2 mg PO DAILY bupropion HCl XL (Wellbutrin XL) 150 mg PO QAM cetirizine 10 mg PO DAILY PRN cyclobenzaprine 10 mg PO TID PRN hydroxyzine HCl 10 mg PO BID PRN levothyroxine 150 mcg PO DAILY 30 days mometasone-formoterol 200-5 mcg/actuation (Dulera) 2 puffs inhalation BID [multivitamin PO DAILY] [Probiotic 1 tab PO DAILY] PFSH Medical History Right otitis media Foot fracture, left Recurrent major depression Rhinosinusitis Asthma Alopecia Hypothyroid Surgical History Encounter for IUD removal Family History Father Asthma Emphysema lung Myocardial infarct Mother COPD (chronic obstructive pulmonary disease) CHF (congestive heart failure) HTN (hypertension) Maternal Grandfather Bladder cancer Maternal Uncle Liver cancer HTN (hypertension) Maternal Uncle HTN (hypertension) Social History Household Members: Family Housing: House Alcohol intake: current Alcohol intake frequency: holidays/special occasions only Comment: once a month 2 drinks Patient Tobacco Use Status: Never used Tobacco e-Cigarette/Vaping Use: Never Used Second Hand Smoke Exposure: No service: No Current occupational status: employed Current occupation: director at [employer] Sexual orientation: Straight/Heterosexual Gender identity: Female Cognitive needs: No Hearing needs: No Vision needs: No Physical Exam Vital Signs: BMI result Body Mass Index 36.2 Const Other: Well-nourished well-developed very friendly female awake alert and oriented x3 in no acute distress Extrem Other: Bilateral lower extremity examination shows good capillary refill, no skin lesions noted, normal sensation light touch Left knee examination shows a minimal effusion, minimal crepitus with range of motion, no joint line tenderness, negative Reinier's test, no instability Results Reviewed Results Reviewed: MRI of the patient's left knee shows no significant degenerative joint disease, no evidence of meniscus or ligamentous tearing Assessment & Plan Assessment & Plan (1) Left knee pain: Code(s): M25.562 - Pain in left knee Category: Medical Plan Ms. Marshall presents with left knee pain most likely due to soft tissue tightness and overuse. I had a lengthy discussion with the patient regarding the treatment options. She does not wish to go to formal physical therapy right now. I did give her a prescription for meloxicam to help with her discomfort. She will follow up with me on an as-needed basis should her symptoms worsen in any way. Feel free to call me at any time should questions regarding her orthopedic management arise. I spent 21 minutes in reviewing the patient's records and imaging studies, seeing the patient and documenting in the medical record. Medications: New meloxicam 15 mg PO DAILY PRN 30 tabs 3RF pain Coding Level of Care Code Est Pt Level 3 (05771) Complex EM visit Add On [id number] Diagnoses Left knee pain M25.562
[2024-01-13 07:41] VITALS: BMI 36.2
== END 2024-01-13 07:58 | disposition home or self-care (01) ==
PROVIDERS: PCP Internal Medicine; Visit Provider Orthopaedic Surgery
DX: M25.562 Pain in left knee (principal)
CPT/HCPCS: 99213

== ENCOUNTER → 2024-01-13 07:37 | Outpatient (BNVA) | payer OTHER, SELFPAY | PROVIDERS: PCP Internal Medicine; Visit Provider Orthopaedic Surgery | DX: M25.562 Pain in left knee (principal) | CPT/HCPCS: 99212 ==

== ENCOUNTER 2024-03-18 09:39 | Emergency (ER) | payer OTHER, SELFPAY ==
--- NOTE | ~2024-03-18 | XR_ITS ---
EXAMINATION: XR CHEST CLINICAL INFORMATION: wheezing, left sided pain COMPARISON: 05/15/2023 TECHNIQUE: 2 views of the chest were obtained. FINDINGS: No significant abnormality is noted involving the heart, lungs, mediastinum, bony thorax or soft tissues. XR/XR chest 2V IMPRESSION: No acute disease Electronically signed by: Orestes Allen MD 03/18/2024 11:42 AM [facility]
[2024-03-18 10:01] VITALS: BP 132/81; PULSE 78; RESP 16; TEMP 36.7; O2SAT 98; BMI 37.5
[2024-03-18 11:46] LABS: Influenza A PCR NEGATIVE (Negative); Influenza B PCR NEGATIVE (Negative); Resp Syncy Virus RNA Qual PCR NEGATIVE (Negative); SARS COV2 PCR INHOUSE NEGATIVE (Negative)
--- NOTE | 2024-03-18 12:19 | ED_ITS ---
HPI - Asthma General Chief Complaint: Asthma Stated Complaint: Asthma Time Seen by Provider: 03/18/24 11:44 Source: patient Mode of arrival: ambulatory Limitations: no limitations History of Present Illness ED Provider: Kleber Knox PA-C HPI Narrative: 33-year-old female with a history of asthma presents to the ER for evaluation of worsening asthma symptoms for the last 7-10 days. She reports running out of her Dulera inhaler due to insurance issues, was going to cause 300 dollars to fell. She has been using her albuterol inhaler with minimal relief. She reports chest tightness and some shortness of breath, no significant wheezing or cough. Unclear trigger. She states her symptoms are much more controlled when she is on her Dulera. 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 No fever or chills. No pain in her chest just tightness when she breathes. complaint: other ( Chest tightness) Onset (ago): day(s) Severity: moderate Context: medication non-compliance Related Data Home Medications ?Medication ?Instructions ?Recorded ?Confirmed Probiotic 1 tab PO DAILY 10/18/20 01/13/24 multivitamin PO DAILY 10/21/21 01/13/24 baricitinib 2 mg tablet (Olumiant) 2 mg PO DAILY 10/23/23 01/13/24 cetirizine 10 mg tablet 10 mg PO DAILY PRN 10/23/23 01/13/24 Previous Rx's ?Medication ?Instructions ?Recorded hydroxyzine HCl 10 mg tablet 10 mg PO BID PRN anxiety #14 tabs 11/19/22 bupropion HCl 150 mg 24 hr tablet, 150 mg PO QAM #30 tabs 02/17/23 extended release (Wellbutrin XL) levothyroxine 150 mcg tablet 150 mcg PO DAILY 30 days #90 tabs 06/05/23 mometasone-formoterol HFA 200 2 puff inhalation BID #13 grams 06/23/23 mcg-5 mcg/actuation aerosol inhaler (Dulera) albuterol sulfate 90 mcg/actuation 1 inh inhalation QID PRN shortness 08/21/23 aerosol inhaler of breath or wheezing 30 days #8.5 grams cyclobenzaprine 10 mg tablet 10 mg PO TID PRN muscle spasm #20 11/09/23 tabs meloxicam 15 mg tablet 15 mg PO DAILY PRN pain #30 tabs 01/13/24 prednisone 20 mg tablet 40 mg (2 x 20 mg) PO DAILY #10 tabs 03/18/24 Allergies Allergy/AdvReac Type Severity Reaction Status Date / Time Seasonal Allergies Allergy ASTHMA Verified 03/18/24 10:05 Review of Systems Review of Systems: Yes all other systems are reviewed and are negative [facility] Past Medical History Medical History Right otitis media Foot fracture, left Recurrent major depression Rhinosinusitis Asthma Alopecia Hypothyroid Surgical History Encounter for IUD removal Family History Family History Father Asthma Emphysema lung Myocardial infarct Mother COPD (chronic obstructive pulmonary disease) CHF (congestive heart failure) HTN (hypertension) Maternal Grandfather Bladder cancer Maternal Uncle Liver cancer HTN (hypertension) Maternal Uncle HTN (hypertension) Social History Social History Household Members: Family Housing: House Alcohol intake: current Alcohol intake frequency: holidays/special occasions only Comment: once a month 2 drinks Patient Tobacco Use Status: Never used Tobacco e-Cigarette/Vaping Use: Never Used Second Hand Smoke Exposure: No Advance Directives: No Advance Directives Information Provided: Yes service: No Current occupational status: employed Current occupation: director at [employer] Sexual orientation: Straight/Heterosexual Gender identity: Female Cognitive needs: No Hearing needs: No Vision needs: No Physical Exam Vital Signs: Vital Signs: Last Vital Signs Temp 98.1 F 03/18/24 12:42 Pulse 78 03/18/24 12:42 Resp 16 03/18/24 12:42 BP 132/81 03/18/24 12:42 Pulse Ox 98 03/18/24 12:42 O2 Del Method Room Air 03/18/24 12:42 BMI result Body Mass Index 37.5 Appearance: Alert. Oriented X3. No acute distress. Head: normocephalic, atraumatic. Eyes: Pupils equal, round and reactive to light. ENT: Pharynx normal. No tonsillar swelling or exudate. Neck: Normal inspection. Neck supple. CVS: Normal heart rate and rhythm. Pulses normal. Respiratory: No respiratory distress. Breath sounds diminished at the bilateral bases, difficulty taking a deep breath Skin: Skin warm and dry. Normal skin color. Normal skin turgor. No rashes. Extremities: No lower extremity edema. No joint swelling. Neuro/psych: Oriented X 3. grossly normal, nonfocal, appropriate Medical Decision Making Medical Decision Making [facility] Narrative: 33-year-old female with history of asthma presents to the ER for evaluation of chest tightness for the last 7-10 days along with some shortness of breath. She has been using her albuterol inhaler but can not afford her Dulera inhaler due to insurance issues. Vital signs are stable on arrival. She is speaking complete sentences, no respiratory distress. She does use her albuterol inhaler in the waiting room, on evaluation she has no audible wheezing. She does have some decreased inspiratory effort and decreased breath sounds in the bases but no wheezing or rhonchi. Chest x-ray is clear, no evidence of pneumonia. You tested negative for COVID, flu, RSV. Will treat with 5 days of oral prednisone, continue p.r.n. albuterol. She will be able to have her insurance cover her Dulera starting next Thursday. Stable for discharge home with outpatient follow-up. Return precautions were discussed. Differential Diagnosis Differential Diagnoses: The differential diagnosis associated with the presentation includes strep, covid, flu, rsv, other viral syndrome, bronchitis, pneumonia, asthma exacerbation, low suspicion for ACS or PE Admission/Observation Consideration of admission/observation: Escalation of care including admission/observation considered Lab Data [facility] Lab Attestation statement: I reviewed the patient's lab results. Labs: Lab Results 03/18/24 Range/Units 10:57 Influenza Type A (PCR) NEGATIVE (Negative) Influenza Type B (PCR) NEGATIVE (Negative) RSV RNA Qual (PCR) NEGATIVE (Negative) SARS-CoV-2 RNA (RT-PCR) NEGATIVE (Negative) Independent Interpretation I performed an independent interpretation of an: Plain X-Ray Interpretation: No focal infiltrate or effusion Radiology Impression Discussion of test interpretation with radiology: I have reviewed the radiologist's reading. External Record Review External record reviewed: Prior outpatient labs and Prior outpatient radiology Prescription Management I considered prescription management with: Antibiotic and Other ( antitussive, bronchodilator, steroid) Chronic Conditions Patient?s care impacted by: Other ( asthma) Social Determinants Patient?s care significantly limited by Social Determinants of Health including: Other Social Determinant of Health ( insurance problem) Critical Care Time Critical Care Time Critical Care Time: No Discharge Plan Discharge Clinical Impression: Asthma with acute exacerbation Patient Disposition: Home, Self-Care Instructions: Asthma (DC) Additional Instructions: Your chest x-ray was normal today, no evidence of pneumonia. You tested negative for flu, COVID, RSV. Take the prescribed steroids as directed. Complete all 5 days. Continue your albuterol inhaler as needed for chest tightness and shortness of breath. Rest and drink plenty of fluids. Avoid known triggers of your asthma which may include environmental exposures, strong scents or perfumes, extremely cold air Follow-up with your doctor. Once you are done with the prednisone, start your inhaled corticosteroid If you develop new or worsening symptoms call 911 or come back to the ER for further evaluation. Prescriptions: New prednisone 20 mg tablet 40 mg PO DAILY Qty: 10 0RF No Action bupropion HCl [Wellbutrin XL] 150 mg tablet extended release 24 hr 150 mg PO QAM Qty: 30 2RF levothyroxine 150 mcg tablet 150 mcg PO DAILY 30 Days Qty: 90 2RF albuterol sulfate 90 mcg/actuation HFA aerosol inhaler 1 inh inhalation QID PRN (Reason: shortness of breath or wheezing) 30 Days Qty: 8.5 0RF Probiotic 1 tab PO DAILY multivitamin PO DAILY cyclobenzaprine 10 mg tablet 10 mg PO TID PRN (Reason: muscle spasm) Qty: 20 0RF hydroxyzine HCl 10 mg tablet 10 mg PO BID PRN (Reason: anxiety) Qty: 14 0RF Olumiant 2 mg tablet 2 mg PO DAILY Rx Instructions: Dr. [facility] Dulera 200-5 mcg/actuation HFA aerosol inhaler 2 puff inhalation BID Qty: 13 11RF cetirizine 10 mg tablet 10 mg PO DAILY PRN meloxicam 15 mg tablet 15 mg PO DAILY PRN (Reason: pain) Qty: 30 3RF Referrals: Marcel,Keven Patten MD [Primary Care Provider] - Stand Alone Forms: Work/School Release Interventions: ED Discharge Assessment Last Done: 03/18/24 12:42 Discharge Date/Time: 03/18/24 12:42 Print Language: Albanian
[2024-03-18 12:42] VITALS: BP 132/81; PULSE 78; RESP 16; TEMP 36.7; O2SAT 98
--- OUTSIDE RECORDS SUMMARY | 2024-03-23 07:05 | XMS_ITS | Data Portability ---
Author Organization [facility], [address] Address [address] [place] [address] Assessment No assessment recorded. Plan of Treatment Reminders Order Date Submit Date Provider Last Modified By Organization Details Last Modified Time Details Appointments None recorded. Lab rapid strep group A, throat 2023 024 [email or web address], [address] [place], [address], 19:27:15 Referral None recorded. Procedures None recorded. Surgeries None recorded. Imaging None recorded. Medication Orders amoxicillin 875 mg tablet 2023 024 [facility] #[id number], [address] [facility], [place], [address], 19:27:16 Patient TargetsNo targets recorded. Patient Instructions Encounter Date Encounter Id Patient Instructions Last Modified By Organization Details Last Modified Time 09/10/2023 [id number] Based on your Presentation, Exam, and Lab Testing you are being diagnosed with Strep Throat. Your Rapid Strep Test was positive. I am going to prescribe you and antibiotic to cover this infection. Please be sure to complete the full course of this antibiotic to prevent antibiotic resistance. It is also important to complete this antibiotic because this infection is what causes Scarlet Fever/Rheumatic Heart Disease. Antibiotics will typically take 4-5 days to start to work with symptom improvement. The following are my other recommendations to help with symptoms and is important for this diagnosis: 1. Do not share any food or drinks - strep is passed through direct saliva exchange (NOT IN THE AIR) 2. Change your toothbrush in 3-4 days so that you don't re-infect yourself after you complete the antibiotic. 3. Take Ibuprofen or Tylenol if you do not have any allergies to these medications. If you take a blood thinner you should not take NSAIDS like Ibuprofen. These medication will help with the inflammation in your respiratory tract which should help the cough. 4. Do not take any Cold Medications that have a Decongestant in it - this will dry out your throat and make the sore throat worse. 5. Drinking Hot Tea with honey can help coat and soothe your throat. 6. You would be considered contagious for the next 24-48 hours, or until fever resolves. I would be seen again if you develop any of the following symptoms. 1. Fever > 101.0 2. Stiff neck - where you can't turn your neck 3. Trouble swallowing your saliva - drooling 4. Swelling of a lymph node in your throat that is painful to touch 5. Difficulty breathing 6. Severe Headache Thank you for using [facility] today, please feel free to contact our office if you have any questions or concerns. [email or web address] Not available 09/10/2023 19:27:12 Reason for Referral None Reported. Results Created Date Observation Date Name Description Value Unit Range Abnormal Flag Note LastModifiedBy Organization Detail LastModifiedTime 09/10/19 24 09/10/2023 rapid strep group A, throa t Unknown Analyte positi ve Not Available [id number] [place], [address], 09/10/2023 19:23:24 Result Notes None recorded. Problems Name Problem SNOMED Code Status Onset Date Resolution Date Notes Provider Name and Address Organization Details Recorded Time Alopecia 84052173 Active 2023 Jacqueline benitez PA - [facility] 4 19:19:14 Environmental allergy 984589635 Active 2023 Jacqueline benitez PA - [facility] 4 19:22:09 Asthma 518126815 Active 2023 Jacqueline benitez PA - [facility] 19:22:21 Problem Notes None recorded. Medical Equipment None Reported. Allergies No known drug allergies Medications Name Sig Start Date Stop Date Status Note LastModified by Organization Details LastModified Time amoxicillin 875 mg tablet Take 1 tablet twice a day by oral route for 10 days. 2023 active Not Available Not Available Not Avai lable Wellbutrin SR active Not Available Not Available Not Available Cymbalta active Not Available Not Avai lable Not Available Nexplanon 68 mg subdermal implant Inject by subcutaneou s route. active Not Available Not Available No t Available Olumiant 2 mg tablet Take 1 tablet every day by oral route. active Not Available Not Available No t Available Vitals Date Recorded Body height Body mass index (BMI) Body weight Oxygen saturation Oxygen saturation in Arterial blood by Pulse oximetry Heart rate Respiratory rate Body temperature Systolic blood pressure Diastolic blood pressure Provider Name and Address Organization Details Last Updated DateTime 147.32 cm 36.6 kg/m2 94118.6 6 g 98 % 98 % 75 /min 18 /min 97.7 [degF] 96 mm[Hg] 68 mm[Hg] Jacqueline Laureano PA - [facility] 19:12:45 Social History Question Answer Notes LastModified by [employer] ion Details LastModified Time Tobacco Smoking Status Never Smoker Jacqueline benitez PA - [facility] 09/10/2023 19:21:09 What Is Your Level Of Alcohol Consumption? None Information not available 09/10/2023 Are You Currently Employed? Yes Information not available 09/10/2023 Have You Had A Flu Shot This Season? Yes Information not available 09/10/2023 If No, Would You Like A Flu Shot Today? No Information not available 09/10/2023 Do You Use Any Illicit Or Recreational Drugs? No Information not available 09/10/2023 Do You Or Have You Ever Used Any Other Forms Of Tobacco Or Nicotine? No Information not available 09/10/2023 Sex: Unknown Functional Status None recorded. Mental Status None recorded. Family History Relationship Description Onset Age of this Age Resolved Age Notes LastModified by Organization Details LastModified Time Mother Hypertensive disorder Not available 09/09 19:20:31 Medical History No medical history recorded. Gynecological History Statement/Question Response Is there any chance of ? No LMP N/A Obstetrics History GPAL:G 0 P 0 0 0 0 Past Encounters Encounter ID Performer Location Encounter Start Date Encounter Closed Date Diagnosis/Indication Diagnosis SNOMED-CT Code Diagnosis ICD10 Code [id number] [address] [facility] [place] [address] 08/23/2018 11:25:45 08/23/2018 12:08:32 [id number] [facility] [address] [place] [address] 09/10/2023 18:50:15 09/10/2023 19:27:53 Streptococcal sore throat 40695789 J02.0 Health Concerns Section Related Observation LastModified by Organization Detai ls LastModified Time None Recorded Concern Status LastModified by Organization Details LastModified Time None Recorded Advance Directives Directive None Recorded Payers Encounter Date Sequence Insurance Name Policy Number Policy Ponce Covered Member ID Ponce Member ID Guarantor Name 08/23/2018 1 [facility] - HEALTH NET PLAN (MEDICAID HMO) [id number] Yanira Marshall [id number] Yanira Marshall 09/10/2023 1 [facility] - [facility] [employer] (HMO) [id number] Yanira Marshall [id number] Yanira Marshall Notes Date Note Type Note Provider Name and Address Organization Details Recorded Time 09/10/2023 text/html Sore throatRepor al [email or web address] Y.O HEALTHY female pt presents with sore troat x 4 days with no other sx's. [facility] TH[facility] [address] [place], [address], PA - [facility] 09/10/2023 19:29:26 OBGyn Episode No OBEpisode recorded.
== END 2024-03-18 12:42 | disposition home or self-care (01) ==
PROVIDERS: Emergency Provider Emergency Medicine Emergency Medical Services; PCP Internal Medicine
DX: J45.901 Unspecified asthma with (acute) exacerbation (principal); R06.02 Shortness of breath; Z03.818 Encounter for observation for suspected exposure to other biological agents ruled out
CPT/HCPCS: 0241U; 71046; 99282; 99283

== ENCOUNTER 2024-03-29 14:45 | Outpatient (AMB) | payer OTHER, SELFPAY ==
--- OUTSIDE RECORDS SUMMARY | 2024-03-29 14:48 | XMS_ITS | Data Portability ---
Author Organization [facility], [address] Address [address] [place] [address] Assessment No assessment recorded. Plan of Treatment Reminders Order Date Submit Date Provider Last Modified By Organization Details Last Modified Time Details Appointments None recorded. Lab rapid strep group A, throat 2023 024 [email or web address], [address] [place], [address], 19:27:15 Referral None recorded. Procedures None recorded. Surgeries None recorded. Imaging None recorded. Medication Orders amoxicillin 875 mg tablet 2023 024 [facility]/Ph[facility]acy #[id number], [address] [facility], [place], [address], 19:27:16 Patient TargetsNo targets recorded. Patient Instructions Encounter Date Encounter Id Patient Instructions Last Modified By Organization Details Last Modified Time 09/10/2023 [id number] Based on your Presentation, Exam, and Lab [...] if you have any questions or concerns. [email or web address] Not available 09/10/2023 19:27:12 Reason for Referral None Reported. Results Created Date Observation Date Name Description Value Unit Range Abnormal Flag Note LastModifiedBy Organization Detail LastModifiedTime 09/10/19 24 09/10/2023 rapid strep group A, throa t Unknown Analyte positi ve Not Available [id number] [place], [address], 09/10/2023 19:23:24 Result Notes None recorded. Problems Name Problem SNOMED Code Status Onset Date Resolution Date Notes Provider Name and Address Organization Details Recorded Time Alopecia 74926870 Active 2023 Jacqueline benitez PA - [facility] 4 19:19:14 Environmental allergy 263294398 Active 2023 Jacqueline benitez PA - [facility] 4 19:22:09 Asthma 336259810 Active 2023 [facility]z [facility] - [facility] [...] Last Updated DateTime 147.32 cm 36.6 kg/m2 95428.6 6 g 98 % 98 % 75 /min 18 /min 97.7 [degF] 96 mm[Hg] 68 mm[Hg] Jacqueline Laureano PA - [employer] [facility] 19:12:45 Social History Question Answer Notes LastModified by [employer] ion Details LastModified Time Tobacco Smoking Status [...] Diagnosis/Indication Diagnosis SNOMED-CT Code Diagnosis ICD10 Code [id number] [address] [facility] [place] [address] 08/23/2018 11:25:45 08/23/2018 12:08:32 [id number] [facility] [address] [facility] [place] [address] 09/10/2023 18:50:15 09/10/2023 19:27:53 Streptococcal sore throat 14854428 J02.0 Health Concerns Section Related Observation LastModified by Organization Detai ls LastModified Time None Recorded Concern Status LastModified by Organization Details LastModified Time None Recorded Advance Directives Directive None Recorded Payers Encounter Date Sequence Insurance Name Policy Number Policy Ponce Covered Member ID Ponce Member ID Guarantor Name 08/23/2018 1 [facility] - HEALTH NET PLAN (MEDICAID HMO) [id number] Yanira Marshall [id number] Yanira Marshall 09/10/2023 1 [facility] HE[facility] PLAN - [facility] [employer] (HMO) [id number] Yanira Marshall [id number] Yanira Marshall Notes Date Note Type Note Provider Name and Address Organization Details Recorded Time 09/10/2023 text/html Sore throatRepor al [email or web address] Y.O HEALTHY female pt presents with sore troat x 4 days with no other sx's. [facility] [address] [place], [address], [place] - [facility] 09/10/2023 19:29:26 OBGyn Episode No OBEpisode recorded.
--- NOTE | 2024-03-29 14:59 | A.OFFPC_ITS ---
Vital Signs 03/29/24 15:01 Height 4 ft 11 in Weight 185 lb BMI 37.4 BP 130/70 Blood Pressure Location Lt brachial Position Sitting Pulse 62 Pulse Source Pulse Oximeter Pulse Oximetry (%) 95 Oxygen Delivery Method Room Air Intake [place] Re[place] [facility] [place] Asthma Intake Note: Patient is here for hospital discharge follow up. Patient was discharged from [facility] [place]/[facility]. Solar Energy System Installer Helper Required: No Validation Intern: Present Accompanied by: Child Allergies Seasonal Allergies Allergy (Verified 03/29/24 15:01) ASTHMA Medication List - Last Reconciled 03/29/24 by Latasha Espitia PA-C albuterol sulfate 90 mcg/actuation 1 inh inhalation QID PRN 30 days baricitinib (Olumiant) 2 mg PO DAILY bupropion HCl XL (Wellbutrin XL) 150 mg PO QAM cetirizine 10 mg PO DAILY PRN cyclobenzaprine 10 mg PO TID PRN hydroxyzine HCl 10 mg PO BID PRN levothyroxine 150 mcg PO DAILY 30 days meloxicam 15 mg PO DAILY PRN mometasone-formoterol 200-5 mcg/actuation (Dulera) 2 puffs inhalation BID [multivitamin PO DAILY] [Probiotic 1 tab PO DAILY] Tobacco use date assessed: 03/29/24 Dental Screening Dental Screen Date: 06/23/23 HPI [facility] [place] Asthma HPI Details 33-year-old obese female with hypothyroi dism, asthma, recurrent major depression last seen by Dr. Rod October 2023 coming in for hospital discharge follow up.? In review of the notes, patient was seen in [facility] 03/19/2024 for evaluation of worsening asthma after being unable to fill her Dulera inhaler patient was given prednisone and discharged home. Patient states since discharge from the hospital she has been feeling much better. States her chest tightness has greatly improved still does have some tightness but has mostly resolved. She has been using her albuterol inhaler only as needed. insurance issue that was preventing her from refilling her inh aler has been resolved. [facility] Medical History Right otitis media Foot fracture, left Recurrent major depression Rhinosinusitis Asthma Alopecia Hypothyroid Surgical History Encounter for IUD removal Family History Father Asthma Emphysema lung Myocardial infarct Mother COPD (chronic obstructive pulmonary disease) CHF (congestive heart failure) HTN (hypertension) Maternal Grandfather Bladder cancer Maternal Uncle Liver cancer HTN (hypertension) Maternal Uncle HTN (hypertension) Social History Household Members: Family Housing: House Alcohol intake: current Alcohol intake frequency: holidays/special occasions only Comment: once a month 2 drinks Patient Tobacco Use Status: Never used Tobacco e-Cigarette/Vaping Use: Never Used Second Hand Smoke Exposure: No service: No Current occupational status: employed Current occupation: director at [employer] Sexual orientation: Straight/Heterosexual Gender identity: Female Cognitive needs: No Hearing needs: No Vision needs: No Questionnaire Thrive Questionnaire Date Thrive assessed: 06/23/23 MARGI-7 AMB Questionnaire MARGI-7 Date MARGI - 7 assessed: 10/23/23 Source: Developed by Drs. Alhaji Lindo, Radha Antonio, Myke Brizuela and colleagues, with an educational isa from [employer]. Review of Systems Const Denies body aches, Denies chills, Denies fever(s) and Denies poor appetite Card Denies chest pain, Denies irregular heart rhythm, Denies lightheadedness and Denies dyspnea Resp Denies cough and Denies dyspnea GI Denies nausea and Denies vomiting Reports no additional complaints Musc Reports no additional complaints and Denies abnormal gait Skin/Breast Reports system reviewed and no additional complaints, except as documented Neuro Denies abnormal gait Psych Reports no additional complaints Physical exam (Primary Care) Vital Signs: Last Vital Signs Pulse 62 03/29/24 15:01 BP 130/70 03/29/24 15:01 Pulse Ox 95 03/29/24 15:01 Oxygen Delivery Method Room Air 03/29/24 15:01 BMI result Body Mass Index 37.4 Tobacco/Smoking Status: Tobacco use Status Tobacco use date assessed 03/29/24 03/29/24 15:07 Patient Tobacco Use Status Never used Tobacco 03/29/24 15:07 e-Cigarette/Vaping Use Never Used 03/29/24 15:07 Thrive Assessment: Date of Thrive Assessment Date Thrive assessed 06/23/23 03/29/24 15:07 Const General: cooperative, healthy appearing, comfortable and no acute distress Orientation/consciousness: patient oriented x3 HENMT Head: Yes normocephalic Ears: hearing grossly normal bilaterally General nose exam: Normal external nose present Eyes General: appearance normal, both eyes and all related structures Conjunctivae: conjunctivae normal Neck Neck: Yes full ROM and Yes no lymphadenopathy Resp Effort & Inspection: normal respiratory effort Auscultation: clear to auscultation bilaterally, no crackles, no rales, no rhonchi and no wheezes Cardio Rate: regular rate Rhythm: regular rhythm Skin General skin exam: no rashes or lesions noted Neuro General: patient oriented x3 Gait exam (Neuro): Normal gait present Extrem General: Yes normal to inspection, Yes full ROM and No edema Psych Affect: normal affect Attitude: cooperative Insight: Good insight present (Psych) Judgement: Good judgement present (Psych) Coding Level of Care Code Est Pt Level 3 (90720) Diagnoses Asthma J45.909 Obesity (BMI 30-39.9) E66.9 Assessment & Plan Assessment & Plan (1) Asthma: Code(s): J45.909 - Unspecified asthma, uncomplicated Category: Medical Plan: Asthma currently controlled on present medications. Continue on Dulera b.i.d. and albuterol as needed. Avoid triggers such as allergies. (2) Obesity (BMI 30-39.9): Code(s): E66.9 - Obesity, unspecified Category: Medical Plan: Healthy diet and regular exercise is encouraged. Plan This note was constructed using voice recognition software. While every effort has been made to ensure accuracy and psychiatry teacher, still areas may have been included sometimes these areas may affect the content or meeting of the given symptoms. Total time spent caring for the patient today was 20 minutes. This includes time spent before the visit reviewing the chart, time spent during the visit, and time spent after the visit and documentation.
[2024-03-29 15:01] VITALS: BP 130/70; PULSE 62; O2SAT 95; BMI 37.4
== END 2024-03-29 15:41 | disposition home or self-care (01) ==
PROVIDERS: PCP Internal Medicine
DX: J45.909 Unspecified asthma, uncomplicated (principal); E66.812 Obesity, class 2; Z68.37 Body mass index [BMI] 37.0-37.9, adult

== ENCOUNTER → 2024-03-29 14:45 | Outpatient (BNVA) | payer OTHER, SELFPAY | PROVIDERS: PCP Internal Medicine | DX: J45.909 Unspecified asthma, uncomplicated (principal); E66.9 Obesity, unspecified | CPT/HCPCS: 99212 ==

== ENCOUNTER 2024-12-09 18:52 | Emergency (ER) | payer SELFPAY ==
--- NOTE | ~2024-12-09 | XR_ITS ---
CLINICAL HISTORY: pain Radiographs of the right foot, 3 views Comparison: None available Findings: No fracture or dislocation. The joint spaces are preserved without osteophytosis. Calcaneal spur. Soft tissue swelling. Impression: No acute osseous abnormality. This document has been electronically signed by: Camelia Ingram MD on 12/09/2024 20:06:57
[2024-12-09 19:05] VITALS: BP 115/55; PULSE 79; RESP 20; TEMP 36.4; O2SAT 97; BMI 38.5
--- OUTSIDE RECORDS SUMMARY | 2024-12-09 19:20 | XMS_ITS | Encounter Summary ---
Author Organization [facility] Address [facility] [place] [address] Care Team Providers Care Precision Lens Technician Name Role Phone Izabel Terrell MD Primary Care Provider Unava ilable Encounter Details Date Type Department Care Team Description 03/13/2017 Manager Pmo Report Medical Records [address] [place] [address] Abstract, Provider Social History Tobacco Use Types Packs/Day Years Used Date Smoking Tobacco: Never Smokeless Tobacco: Never Alcohol Use Standard Drinks/Week Comments Yes 0 (1 standard drink = 0.6 oz pure alcohol) one drink every 2 weeks at most Sex Assigned at Date Recorded Not on file documented as of this encounter Plan of Treatment Not on file documented as of this encounter Visit Diagnoses Not on filedocumented in this encounter Care Teams Precision Lens Technician Relationship Specialty Start Date End Date Izabel Terrell MD PCP - General Internal Medicine 02/24/14 documented as of this encounter
--- OUTSIDE RECORDS SUMMARY | 2024-12-09 19:20 | XMS_ITS | Encounter Summary ---
Author Organization [facility] Address [facility] [place] [address] Care Team Providers Care Motorized Squad Captain Name Role Phone Izabel Terrell MD Primary Care Provider Unava ilable Encounter Details Date Type Department Care Team Description 03/24/2018 Bulb Brander Report Medical Records [address] [place] [address] Abstract, Provider Social History Tobacco Use Types [...] on filedocumented in this encounter Care Teams Motorized Squad Captain Relationship Specialty Start Date End Date Izabel Terrell MD PCP - General Internal Medicine 02/24/14 documented as of this encounter
--- OUTSIDE RECORDS SUMMARY | 2024-12-09 19:20 | XMS_ITS | Encounter Summary ---
Author Organization [facility] Address [facility] [place] [address] Care Team Providers Care Software Developer Consultant Name Role Phone Izabel Terrell MD Primary Care Provider Unava ilable Encounter Details Date Type Department Care Team Description 11/07/2015 Manager Of Sustainability Report Medical Records [address] [place], [place] [id number] [place] [address] Social History Tobacco Use Types Packs/Day Years Used Date Smoking Tobacco: Never Smokeless Tobacco: Never Alcohol Use Standard Drinks/Week Comments Yes 0 (1 standard drink = 0.6 oz pur e alcohol) rarely Sex Assigned at Date Recorded Not on file documented as of this encounter Plan of Treatment Not on file documented as of this encounter Visit Diagnoses Not on filedocumented in this encounter Care Teams Software Developer Consultant Relationship Specialty Start Date End Date Izabel Terrell MD PCP - General Internal Medicine 02/24/14 documented as of this encounter
--- OUTSIDE RECORDS SUMMARY | 2024-12-09 19:20 | XMS_ITS | Encounter Summary ---
Author Organization [facility] Address [facility] [place] [address] Care Team Providers Care Bilingual Medical Receptionist Name Role Phone Izabel Terrell MD Primary Care Provider Unava ilable Encounter Details Date Type Department Care Team Description 05/26/2018 Orders Only Medical Records [address] [place] [address] Abstract, Provider Social History Tobacco Use Types Packs/Day Years Used Date Smoking Tobacco: Never Smokeless Tobacco: Never Alcohol Use Standard Drinks/Week Comments Yes 0 (1 standard drink = 0.6 oz pure alcohol) one drink every 2 weeks at most Sex Assigned at Date Recorded Not on file documented as of this encounter Plan of Treatment Not on file documented as of this encounter Procedures Procedure Name Priority Date/Time Associated Diagnosis Comments ALLERGY INJECTION ORDER Routine 05/24/2018 documented in this encounter Results * ALLERGY INJECTION ORDER (05/24/2018) Provider Abstract PROCEDURES documented in this encounter Visit Diagnoses Not on filedocumented in this encounter Care Teams Bilingual Medical Receptionist Relationship Specialty Start Date End Date Izabel Terrell MD PCP - General Internal Medicine 02/24/14 documented as of this encounter
--- OUTSIDE RECORDS SUMMARY | 2024-12-09 19:21 | XMS_ITS | Encounter Summary ---
Author Organization [facility] Address [facility] [place] [address] Care Team Providers Care Customer Management Specialist Name Role Phone Izabel Terrell MD Primary Care Provider Unava ilable Encounter Details Date Type Department Care Team Description 04/24/2021 Old Medical Records Medical Records [address] [place] [address] Abstract, Provider Social History Tobacco Use Types [...] on filedocumented in this encounter Care Teams Customer Management Specialist Relationship Specialty Start Date End Date Izabel Terrell MD PCP - General Internal Medicine 02/24/14 documented as of this encounter
--- OUTSIDE RECORDS SUMMARY | 2024-12-09 19:21 | XMS_ITS | Encounter Summary ---
Author Organization [facility] Address [facility] [place] [address] Care Team Providers Care Master Machinist Name Role Phone Izabel Terrell MD Primary Care Provider Unava ilable Encounter Details Date Type Department Care Team Description 07/22/2017 Director Of Special Events Report Medical Records [address] [place], [place] [id number] [place] [address] Social History Tobacco Use Types Packs/Day Years [...] on filedocumented in this encounter Care Teams Master Machinist Relationship Specialty Start Date End Date Izabel Terrell MD PCP - General Internal Medicine 02/24/14 documented as of this encounter
--- OUTSIDE RECORDS SUMMARY | 2024-12-09 19:21 | XMS_ITS | Encounter Summary ---
Author Organization [facility] Address [facility] [place] [address] Care Team Providers Care Crime Specialist Name Role Phone Izabel Terrell MD Primary Care Provider Unava ilable Encounter Details Date Type Department Care Team Description 11/20/2017 Investigation Division Captain Report Medical Records [address] [place], [place] [id number] [place] [address] Social History Tobacco Use Types Packs/Day Years [...] on filedocumented in this encounter Care Teams Crime Specialist Relationship Specialty Start Date End Date Izabel Terrell MD PCP - General Internal Medicine 02/24/14 documented as of this encounter
--- OUTSIDE RECORDS SUMMARY | 2024-12-09 19:21 | XMS_ITS | Encounter Summary ---
Author Organization [facility] Address [facility] [place] [address] Care Team Providers Care Roundsman Name Role Phone Izabel Terrell MD Primary Care Provider Unava ilable Encounter Details Date Type Department Care Team Description 05/30/2015 Release of Information Medical Records [address] [id number] Abstract, Provider Social History Tobacco Use Types Packs/Day Years Used Date Smoking Tobacco: Never Smokeless Tobacco: Never Alcohol Use Standard Drinks/Week Comments Yes 0 (1 standard drink = 0.6 oz pur e alcohol) none Sex Assigned at Date Recorded Not on file documented as of this encounter Plan of Treatment Not on file documented as of this encounter Visit Diagnoses Not on filedocumented in this encounter Care Teams Roundsman Relationship Specialty Start Date End Date Izabel Terrell MD PCP - General Internal Medicine 02/24/14 documented as of this encounter
--- OUTSIDE RECORDS SUMMARY | 2024-12-09 19:21 | XMS_ITS | Encounter Summary ---
Author Organization [facility] Address [address] [place] [address] Care Team Providers Care Shipping Point Inspector Name Role Phone Sierra Benavides MD Primary Care Provider [phone] Natalia Worthington MD Primary Care Provider Izabel Garduno MD Primary Care Provider Sade ennis Encounter Details Date Type Department Care Team Description 12/28/2009 Acidizer Water Well Report Medical Records [address] [place] [address] Nery Herrera NP Social History Tobacco Use Types Packs/Day Years Used Date Smoking Tobacco: Never Alcohol Use Standard Drinks/Week Comments No 0 (1 standard drink = 0.6 oz pur e alcohol) Sex Assigned at Date Recorded Not on file documented as of this encounter Plan of Treatment Not on file documented as of this encounter Visit Diagnoses Not on filedocumented in this encounter Care Teams Shipping Point Inspector Relationship Specialty Start Date End Date Sierra Benavides MD [address] [place] [address] [id number] PCP - General 08/20/09 05/21/11 Natalia Worthington MD [address] [place] [phone] PCP - General Internal Medicine 05/22/11 02/23/14 Izabel Terrell MD [address] [place] [phone] PCP - General Internal Medicine 02/24/14 documented as of this encounter
--- OUTSIDE RECORDS SUMMARY | 2024-12-09 19:21 | XMS_ITS | Encounter Summary ---
Author Organization [facility] Address [address] [place] [address] Care Team Providers Care Other Wood Processing Machine Operator Name Role Phone Sierra Benavides MD Primary Care Provider [phone] Natalia Worthington MD Primary Care Provider Iazbel Garduno MD Primary Care Provider Sade ennis Encounter Details Date Type Department Care Team Description 12/28/2009 Event Marketing Specialist Report Medical Records [address] [place] [address] Nery Herrera NP Social History Tobacco Use [...] on filedocumented in this encounter Care Teams Other Wood Processing Machine Operator Relationship Specialty Start Date End Date Sierra Benavides MD [address] [place] [address] [phone] PCP - General 08/20/09 05/21/11 Natalia Worthington MD [address] [place] [phone] PCP - General Internal Medicine 05/22/11 02/23/14 Izabel Terrell MD [address] [place] [phone] PCP - General Internal Medicine 02/24/14 documented as of this encounter
--- OUTSIDE RECORDS SUMMARY | 2024-12-09 19:21 | XMS_ITS | Encounter Summary ---
Author Organization [facility] Address [address] [place] [address] Care Team Providers Care Car Starter Name Role Phone Sierra Benavides MD Primary Care Provider [phone] Natalia Worthington MD Primary Care Provider Izabel Garduno MD Primary Care Provider Sade ennis Encounter Details Date Type Department Care Team Description 05/08/2011 Carpet Journeyman Report Medical Records [address] [place] [address] Francisca Caceres Social History Tobacco Use Types Packs/Day Years Used Date Smoking Tobacco: Never Alcohol Use Standard Drinks/Week Comments No 0 (1 standard drink = 0.6 oz pur e alcohol) Sex Assigned at Date Recorded Not on file documented as of this encounter Plan of Treatment Not on file documented as of this encounter Visit Diagnoses Not on filedocumented in this encounter Care Teams Car Starter Relationship Specialty Start Date End Date Sierra Benavides MD [address] [place], [place] [phone] PCP - General 08/20/09 05/21/11 Natalia Worthington MD [address] [place] [phone] PCP - General Internal Medicine 05/22/11 02/23/14 Izabel Terrell MD [address] [place] [id number] PCP - General Internal Medicine 02/24/14 documented as of this encounter
--- OUTSIDE RECORDS SUMMARY | 2024-12-09 19:21 | XMS_ITS | Clinical Summary ---
Author Organization [facility] Address [address] [place] [address] Care Team Providers Care Registered Nurse Teacher Name Role Phone Izabel Terrell MD Primary Care Provider Unava ilable Allergies Active Allergy Reactions Severity Noted Date Comments Dust 06/04/2017 Pollen 06/04/2017 Seasonal Allergies 06/04/2017 Medications Medication Sig Dispensed Refills Start Date End Date Status Etonogestrel (NEXPLANON) 68 MG Implant Inject 68 mg into the skin Once. 1 Each 0 10/03/2016 Active albuterol (PROVENTIL) (2.5 MG/3ML) 0.083% nebulizer solution Take 1 Vial by nebulization every 4 hours as needed for Wheezing for up to 180 days. 50 Vial 5 01/01/2017 Active ALBUTEROL SULFATE (PROAIR HFA) 108 (90 BASE) MCG/ACT Aero Soln Inhale 2 Puffs into the lungs every 4 hours as needed for Cough, Wheezing or Shortness of Breath. 1 Inhaler 2 01/27/2017 Active Ipratropium-Albutero l (DUONEB) 0.5-2.5 (3) MG/3ML Solution Inhale 3 mL into the lungs 4 times daily. 50 Vial 5 01/29/2017 Active ALLERGY INJECTIONS 0 Active mupirocin (BACTROBAN) 2 % nasal ointment Approximately one-half of the ointment from the single-use tube should be applied into one nostril and the other half into the other nostril twice daily (morning and evening) for 5 days 10 g 0 05/13/2018 Active ketotifen 0.025 % ophthalmic solutionIndications: Perennial allergic conjunctivitis of both eyes Place 1 Drop into both eyes 2 times daily as needed (itch, tear). 5 mL 5 06/02/2018 Active EPINEPHrine (EPIPEN 2-JENNY) 0.3 MG/0.3ML Solution Auto-injectorIndicat ions:Severe persistent asthma without complication Inject 1 Device as directed as needed (anaphylaxis). Use as directed 2 Each 3 06/02/2018 Active buPROPion (WELLBUTRIN XL) 150 MG 24 hr tablet TAKE 1 TABLET BY MOUTH EVERY MORNING 30 Tab 3 11/11/2018 Active budesonide-formotero l (SYMBICORT) 160-4.5 MCG/ACT inhalerIndications:S evere persistent asthma without complication,Perenni al allergic rhinitis,Perennial allergic conjunctivitis of both eyes Inhale 2 Puffs into the lungs 2 times daily. 1 Inhaler 5 12/08/2018 Active fluticasone 50 MCG/ACT nasal sprayIndications:Per ennial allergic rhinitis,Severe persistent asthma without complication,Perejackelini al allergic conjunctivitis of both eyes 2 Sprays by Nasal route daily. 50 Act 5 12/08/2018 Active cetirizine (ZYRTEC) 10 MG tabletIndications:Pe rennial allergic rhinitis,Perennial allergic conjunctivitis of both eyes,Severe persistent asthma without complication Take 1 Tab by mouth daily for 360 days. 30 Tab 5 12/08/2018 Active levothyroxine (SYNTHROID, LEVOTHROID) 200 MCG tablet Take 1 Tab by mouth daily. 30 Tab 5 01/04/2019 Active levothyroxine 100 MCG tablet Take 1 Tab by mouth daily for 360 days. 30 Tab 1 01/04/2019 Active sertraline (ZOLOFT) 50 MG tablet Take 1 Tab by mouth daily. For the first 7 days take 1/2 tablet. If tolerated take 1 whole tab thereafter. 45 Tab 0 02/23/2019 Active predniSONE (DELTASONE) 20 MG tablet Take 3 tabs QAM x 3 days, take 2 tabs QAM x 3 days, take 1 tab QAM x 3 days 18 Tab 0 04/18/2019 Active Fluticasone-Salmeter ol (AIRDUO RESPICLICK 232/14) 232-14 MCG/ACT AEROSOL POWDER,BREATH ACTIVATED Inhale 1 Puff into the lungs 2 times daily. 1 Each 3 08/22/2019 Active Active Problems Problem Noted Date Elevated alkaline phosphatase level 11/12 Class 1 obesity due to exces s calories without serious comorbidity with body mass index (BMI) of 34.0 to 34.9 in adult 11/26/2017 Severe persistent asthma without complic ation 06/22/2017 Perennial allergic rhinitis 02/10/2017 Overview: On allergen immunotherapy Perennial allergic conjunctivitis of bot h eyes 02/10/2017 Heartburn 02/10/2017 Chronic allergic rhinitis 01/29/2017 Anita's thyroiditis 06/14/2008 Overview: Started levothyroxine 05/22, needs repeat bloodwork 07/[address] leon 06/19, followup 6 mos MRSA (methicillin resistant staph aureus ) culture positive 04/28/2008 Overview: 04/21 - furuncle of nose Mild dysplasia of cervix (MARIAM I) 008 Overview: Pap repeated 12/19 and normal. 07/08/16 Pap ASCUS, +HPV 08/12/16 Colpo - MARIAM 1, ECC scant tissue Cervical high risk human papillomavirus (HPV) DNA test positive 08/16/2007 Moderate persistent asthma 02/16/2006 Overview: initially severe persistent, admission , , negative sweat test followed by dr burgess, last visit 02/16 - excellent lung fxn on Advair 500 bid on inhaled steroids since 1995, Advair since 2001 +RAST to dog and cat 07/15 parakeet in home, mom smokes 1 ER visit and placed on prednisone 05/20 (had run out of advair) ER visit 12/18 (ran out of advair) - placed on prednisone Dr Barfield 04/21 Hospitalization at 02/18 - prednisone - spiriva added to regimen, d/c'd 04/[address] Barfield Alopecia areata 02/16/2006 Overview: Since 1997, nl CBC and TSH Aldara prescribed Seen [facility] 05/22 - minoxidil and clobetasol 09/19, 11/19, 05/23, 11/28- triamcinolone injections Prednisone 2017 followed by triamcinolone inj, clobetasol,minoxidil Resolved Problems Problem Noted Date Resolved Date Moderate persistent asthma with acute exacerbati on 08/31/2017 11/30/2017 GBS (group B Streptococcus c basilia), +RV culture, currently 10/05/2014 12/05/2014 Rh negative, antepartum 08/02/2014 12/06/19 15 Overview: RhoGam 4.22.15 IMO Update Fall 2015 Ocedk-jbm-rhkbn fetus 07/26/2014 12/05/2014 Overview: 07/20/14 u/s - adequate interval growth, EFW 65%ile, normal AFV Supervision of other normal 03/07/2014 12/05/2014 Overview: 1. [place] site: [place] 2. Delivery site: [facility] 3. Dating criteria: LMP only 3. Blood type: A NEGATIVE RhoGam: 08/02/14 (28w0d) 4. Genetic screening: Date: 06/06/14 Result: Sequential screen negative 5. GBS: Postive Date: 09/29/14 6. FOB name: Mac 7. Plans A. Epidural or other pain management - epidural B. Labor support identified - Mac Arroyo. Tdap - Date: 09/29/14 D. Breast or Bottle feed: breast E. Baby's name - ?Anahi F. Circumcision - girl 8. Flu vaccine - 03/14/14 9. 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 otitis media 11/26/2009 Overview: , , , 04/20, 01/18 IMO update Supervision of normal 04/04/2015 Immunizations Name Administration Dates Next Due DTP 09/06/1993, 9,1988,09/25 HIB 04/08/1996,03/12/1990 HPV (Gardasil) 07/20/2007,01/13/2007,07/16/2006 Hepatitis B-2 dose(11-15yrs) 02/26/2001,01/30/20 00 Influenza (> 6 Months) 06/03/2016,2013,03/16/2009,01/17,02/17/2007,02/16/2006,01/30/2005 ,02/23/2004,01/30/2003,02/25/2001,01/11 Influenza (>6 Months) Split Preservative Free 03/14/2014 Influenza H1N1 Pandemic Flu Vaccine 03/16/2009 Influenza Vaccine-quadrivale nt 4 Years Plus 01/29/2017 MMR (Kupzuya-Jidya-Imgezxc) 07/04/2011, 1,02/23/1990 Meningococcal (Menactra) 07/20/2007 PPD-RBMG 07/02/2011,09/06/1993,08/11/1989 Pneumoccoccal(Adult) Polysac charide PPSV23 12/06/2011 Polio (OPV) 09/06/1993, 9,1988,09/25 TD (STATE SUPPLIED FOR ADULT S AND CHILDREN) 02/25/2001 Tdap 09/29/2014,07/16/2006 Family History Medical History Relation Name Comments Emphysema Father CA Prostate Maternal Grandfather ?perhap s bladder bladder cancer Maternal Grandfather ?perh aps prostate Dementia Paternal Grandfather CA Breast Negative Hx CA Colon Negative Hx CA Ovarian Negative Hx Uterine Cancer Negative Hx Relation Name Status Comments Brother Alive healthy Daughter Alive Riddhi Father (Age 52) asthma,all ergies, emphysema former smoker Maternal Grandfather (Age 80) bl adder cancer Maternal Grandmother dementi a Mother Alive unknown Paternal Grandfather dementi a Sister 1 Alive healthy Sister 2 Alive healthy Son Alive Finesse Social History Tobacco Use Types Packs/Day Years Used Date Smoking Tobacco: Never Smokeless Tobacco: Never Tobacco Cessation:Counseling Given: No Alcohol Use Standard Drinks/Week Comments Yes 0 (1 standard drink = 0.6 oz pure alcohol) one drink every 2 weeks at most Sex Assigned at Date Recorded Not on file Last Filed Vital Signs Vital Sign Reading Time Taken Comments Blood Pressure 112/68 04/18/2019 10:04 AM EST Pulse 70 04/18/2019 10:04 AM EST Temperature 36.7 C (98.1 F) 04/18/2019 10:04 AM EST Respiratory Rate 18 04/18/2019 10:0 4 AM EST Oxygen Saturation 96% 04/18/2019 10: 04 AM EST Inhaled Oxygen Concentration - - Weight 81.6 kg (179 lb 12.8 oz) 020 10:04 AM EST Height 146.1 cm (4' 9.5 ) 04/18/2019 10 :04 AM EST Body Mass Index 38.23 04/18/2019 10:04 AM EST Plan of Treatment Health Maintenance Due Date Last Done Comments Covid-19 Vaccine (#1) 02/07/1989 BASELINE HEALTH EXAM 18-39 03/16/201903/16, 07/04/2011, 07/02/2011, Additional history exists CERVICAL CANCER SCREENING 07/09/20192016, 03/14/2014, 03/14/2014 (External Completion), Additional history exists CHOLESTEROL SCREENING 12/02/2021 12/02/2016, 012 BMI CHECK/ADVISE 04/13/2024 04/18/2019, , 02/23/2019, Additional history exists DEPRESSION SCREENING/FOLLOWUP 04/13/2024, 02/23/2019, 11/11/2018, Additional history exists SOCIAL NEEDS SCREENING 04/13/2024 DTAP/TDAP/TD (7 - Td or Tdap) 09/29/2024, 07/16/2006, 02/25/2001, Additional history exists INFLUENZA (#1) 2024 01/29/2017, 05/15, 03/14/2014, Additional history exists PNEUMOCOCCAL VACCINE FOR HIG H RISK PATIENTS (#2) 2053 12/06/2011 Care Teams Registered Nurse Teacher Relationship Specialty Start Date End Date Izabel Terrell MD PCP - General Internal Medicine 02/24/14
--- OUTSIDE RECORDS SUMMARY | 2024-12-09 19:21 | XMS_ITS | Encounter Summary ---
Author Organization [facility] Address [facility] [place] [address] Care Team Providers Care Circular Stuffer Name Role Phone Izabel Terrell MD Primary Care Provider Unava ilable Encounter Details Date Type Department Care Team Description 03/02/2015 Hospital Medical Records [address] [place] [address] Jacqueline Vanegas MD Social History Tobacco Use Types Packs/Day Years [...] on filedocumented in this encounter Care Teams Circular Stuffer Relationship Specialty Start Date End Date Izabel Terrell MD PCP - General Internal Medicine 02/24/14 documented as of this encounter
--- OUTSIDE RECORDS SUMMARY | 2024-12-09 19:21 | XMS_ITS | Encounter Summary ---
Author Organization [facility] Address [address] [place] [address] Care Team Providers Care Community Engagement Representative Name Role Phone Izabel Terrell MD Primary Care Provider Unava ilable Reason for Visit * Reason Comments E-prescribe Rx Request Encounter Details Date Type Department Care Team Description 03/19/2016 Refill ASSISTANT GENERAL MANAGER - [address] [id number] Jacqueline Vanegas MD E-prescribe Rx Request Social History Tobacco Use Types Packs/Day Years Used Date Smoking Tobacco: Never Smokeless Tobacco: Never Alcohol Use Standard Drinks/Week Comments Yes 0 (1 standard drink = 0.6 oz pur e alcohol) rarely Sex Assigned at Date Recorded Not on file documented as of this encounter Miscellaneous Notes * Telephone Encounter - Ines Izquierdo R.N. - 03/19/2016 2:37 PM EST Letter sent to schedule annual * Telephone Encounter - Violet [place] - 03/19/2016 12:24 PM EST Patient would like script to be: E-PRESCRIBED/FAXED TO PHARMACY WHEN WAS THE PATIENT'S LAST APPOINTMENT IN ADULT MEDICINE? [id number] WHEN WAS THE LAST TIME THE PATIENT SAW THEIR PCP? [phone] Does patient have an upcoming appointment? Yes [id number] (THE MEDICATION REQUESTED IS ON THE MED LIST ABOVE) All of the medications requested were on the CURRENT MEDS list Did you check the Pharmacy information above?: YES Patient wants: 90 -day supply Is this a mail order prescription request ? NO Patients current insurance carrier is: Payor: [employer] FFS / Plan: FFS HMO $0 [employer] [id number] / Product Type: MEDICAID RISK documented in this encounter Plan of Treatment Not on file documented as of this encounter Visit Diagnoses Not on filedocumented in this encounter Care Teams Community Engagement Representative Relationship Specialty Start Date End Date Izabel Terrell MD PCP - General Internal Medicine 02/24/14 documented as of this encounter
--- OUTSIDE RECORDS SUMMARY | 2024-12-09 19:21 | XMS_ITS | Encounter Summary ---
Author Organization [facility] Address [address] [place] [address] Care Team Providers Care Trim Machine Operator Name Role Phone Izabel Terrell MD Primary Care Provider Unava ilable Reason for Visit * Reason Onset Date Comments refill request 06/18/2016 Encounter Details Date Type Department Care Team Description 06/18/2016 Refill [facility] [address] [place], [place] [phone] Jacqueline Vanegas MD refill request Social History Tobacco Use Types Packs/Day Years Used Date Smoking Tobacco: Never Smokeless Tobacco: Never Alcohol Use Standard Drinks/Week Comments Yes 0 (1 standard drink = 0.6 oz pur e alcohol) rarely Sex Assigned at Date Recorded Not on file documented as of this encounter Miscellaneous Notes * Telephone Encounter - Camelia Galicia - 06/18/2016 4:59 PM EST Booked one for 07/08/16 please put in refill thank you * Telephone Encounter - Ines Izquierdo R.N. - 06/18/2016 4:23 PM EST Pt needs annual scheduled before any refills will be given. Letters have Been sent. * Telephone Encounter - Camelia Galicia - 06/18/2016 4:20 PM EST WHEN WAS THE PATIENTS LAST ANNUAL FOOD COUNTER ATTENDANT EXAM? 03/21/16 Does patient have an upcoming appointment? Yes 06/20/16 NEEDS DEPO FOR APPT (THE MEDICATION REQUESTED IS ON THE MED LIST ABOVE) Did you check the Pharmacy information above?: YES Indicate how soon the patient needs the script: RAO Patient would like script to be: E-PRESCRIBED/FAXED TO PHARMACY Is the doctor here today?: YES Can the message wait until the doctor returns?: YES Has the patient been told that the prescription will not be filled until the end of the day? YES Payor[place] / Plan: MEDICAID [place] / Product Type: MEDICAID [id number] documented in this encounter Plan of Treatment Not on file documented as of this encounter Visit Diagnoses Not on filedocumented in this encounter Care Teams Trim Machine Operator Relationship Specialty Start Date End Date Izabel Terrell MD PCP - General Internal Medicine 02/24/14 documented as of this encounter
--- OUTSIDE RECORDS SUMMARY | 2024-12-09 19:21 | XMS_ITS | Encounter Summary ---
Author Organization [facility] Address [facility] [place] [address] Care Team Providers Care New Car Inspector Name Role Phone Izabel Terrell MD Primary Care Provider Unava ilable Encounter Details Date Type Department Care Team Description 10/01/2017 Security Risk Analyst Report Medical Records [address] [place], [place] [id number] [place] [address] Social History Tobacco Use Types Packs/Day Years [...] on filedocumented in this encounter Care Teams New Car Inspector Relationship Specialty Start Date End Date Izabel Terrell MD PCP - General Internal Medicine 02/24/14 documented as of this encounter
--- OUTSIDE RECORDS SUMMARY | 2024-12-09 19:21 | XMS_ITS | Encounter Summary ---
Author Organization [facility] Address [address] [place] [address] Care Team Providers Care Senior Business Development Manager Name Role Phone Natalia Worthington MD Primary Care Provider Izabel Garduno MD Primary Care Provider Sade ennis Encounter Details Date Type Department Care Team Description 07/16/2011 Chemical Engineer Report Medical Records [address] [place], [place] [phone] [place] [address] Social History Tobacco Use Types Packs/Day Years [...] on filedocumented in this encounter Care Teams Senior Business Development Manager Relationship Specialty Start Date End Date Natalia Worthington MD PCP - General Internal Medicine 05/22/11 02/23/14 Izabel Terrell MD PCP - General Internal Medicine 02/24/14 documented as of this encounter
--- OUTSIDE RECORDS SUMMARY | 2024-12-09 19:21 | XMS_ITS | Encounter Summary ---
Author Organization [facility] Address [address] [place] [address] Care Team Providers Care Wireline Supervisor Name Role Phone Sierra Benavides MD Primary Care Provider [phone] Natalia Worthington MD Primary Care Provider Izabel Garduno MD Primary Care Provider Sade ennis Encounter Details Date Type Department Care Team Description 09/07/2009 Exhibit Artist Report Medical Records [address] [place] [id number] Nery Herrera NP Social History Tobacco Use Types Packs/Day Years Used Date Smoking Tobacco: Never Comments:mom smokes Alcohol Use Standard Drinks/Week Comments No 0 (1 standard drink = 0.6 oz pur e alcohol) Sex Assigned at Date Recorded Not on file documented as of this encounter Plan of Treatment Not on file documented as of this encounter Visit Diagnoses Not on filedocumented in this encounter Care Teams Wireline Supervisor Relationship Specialty Start Date End Date Sierra Benavides MD [address] [place], [place] [phone] PCP - General 08/20/09 05/21/11 Natalia Worthington MD [address] [place] [id number] PCP - General Internal Medicine 05/22/11 02/23/14 Izabel Terrell MD [address] [place] [id number] PCP - General Internal Medicine 02/24/14 documented as of this encounter
--- OUTSIDE RECORDS SUMMARY | 2024-12-09 19:21 | XMS_ITS | Encounter Summary ---
Author Organization [facility] Address [facility] [place] [address] Care Team Providers Care Rn Coronary Care Unit Name Role Phone Izabel Terrell MD Primary Care Provider Unava ilable Encounter Details Date Type Department Care Team Description 03/02/2015 Hospital Medical Records [address] [place] [address] Jacqueline Vanegas MD Social History Tobacco Use [...] on filedocumented in this encounter Care Teams Rn Coronary Care Unit Relationship Specialty Start Date End Date Izabel Terrell MD PCP - General Internal Medicine 02/24/14 documented as of this encounter
--- NOTE | 2024-12-09 19:29 | ED.EXTPRO ---
HPI - Extremity Problem General Chief complaint: Extremity Problem Stated complaint: ?R foot fx Time Seen by Provider: 12/09/24 19:05 Source: patient and old records reviewed Mode of arrival: ambulatory Limitations: no limitations History of Present Illness ED Provider: TAMMI HARRELL Narrative: 34 yo female with PMH of asthma who notes about 2+ weeks of R foot pain unknown trauma hurts to walk and stretch foot states she has tried orthotic devices but no improvement. She does work on her feet. She notes no rash to the area MD Complaint: other (foot ) Onset (ago): week(s) (2+) Pain Consistency: constant Location: right and other (foot) Quality: aching Radiation: none Relieving factors: immobilization Exacerbating factors: weight bearing and walking Associated symptoms: denies other symptoms Related Data Home Medications ?Medication ?Instructions ?Recorded ?Confirmed Probiotic 1 tab PO DAILY 10/18/20 03/29/24 multivitamin PO DAILY 10/21/21 03/29/24 baricitinib 2 mg tablet (Olumiant) 2 mg PO DAILY 10/23/23 03/29/24 cetirizine 10 mg tablet 10 mg PO DAILY PRN 10/23/23 03/29/24 Previous Rx's ?Medication ?Instructions ?Recorded hydroxyzine HCl 10 mg tablet 10 mg PO BID PRN anxiety #14 tabs 11/19/22 bupropion HCl 150 mg 24 hr tablet, 150 mg PO QAM #30 tabs 02/17/23 extended release (Wellbutrin XL) mometasone-formoterol HFA 200 2 puff inhalation BID #13 grams 06/23/23 mcg-5 mcg/actuation aerosol inhaler (Dulera) cyclobenzaprine 10 mg tablet 10 mg PO TID PRN muscle spasm #20 11/09/23 tabs meloxicam 15 mg tablet 15 mg PO DAILY PRN pain #30 tabs 01/13/24 albuterol sulfate 90 mcg/actuation 1 inh inhalation QID PRN shortness 03/29/24 aerosol inhaler of breath or wheezing 30 days #8.5 grams levothyroxine 150 mcg tablet 150 mcg PO DAILY 30 days #90 tabs 06/11/24 cyclobenzaprine 10 mg tablet 10 mg PO TID PRN muscle spasm #20 12/09/24 tabs prednisone 20 mg tablet 40 mg (2 x 20 mg) PO DAILY 5 days 12/09/24 #10 tabs Allergies Allergy/AdvReac Type Severity Reaction Status Date / Time Seasonal Allergies Allergy ASTHMA Verified 12/09/24 19:06 Review of Systems Review of Systems: Constitutional : No Fever, No Chills Musculoskeletal : positive joint pain, No Myalgias, No Joint Swelling Skin : No Skin lacerations, No rash Neuro : No Weakness, No Numbness All other systems reviewed and are negative Yes all other systems are reviewed and are negative [facility] Past Medical History Attestation statement: The following information was validated with the patient. Source: old records reviewed Medical History Right otitis media Foot fracture, left Recurrent major depression Rhinosinusitis Asthma Alopecia Hypothyroid Surgical History Encounter for IUD removal Family History Family History Father Asthma Emphysema lung Myocardial infarct Mother COPD (chronic obstructive pulmonary disease) CHF (congestive heart failure) HTN (hypertension) Maternal Grandfather Bladder cancer Maternal Uncle Liver cancer HTN (hypertension) Maternal Uncle HTN (hypertension) Social History Social History Household Members: Family Housing: House Unable to assess alcohol history related to: Unknown Alcohol intake: never Comment: once a month 2 drinks Patient Tobacco Use Status: Never used Tobacco Smoked in Last 30 Days: No e-Cigarette/Vaping Use: Never Used Second Hand Smoke Exposure: No Use of substances other than those prescribed or required for medical reasons: No Advance Directives: No Advance Directives Information Provided: No service: No Current occupational status: employed Current occupation: director at [employer] Sexual orientation: Straight/Heterosexual Gender identity: Female Cognitive needs: No Hearing needs: No Vision needs: No Physical Exam Vital Signs: Vital Signs: Last Vital Signs Temp 97.6 F 12/09/24 19:05 Pulse 79 12/09/24 19:05 Resp 20 12/09/24 19:05 BP 115/55 L 12/09/24 19:05 Pulse Ox 97 12/09/24 19:05 O2 Del Method Room Air 12/09/24 19:05 BMI result Body Mass Index 38.5 Appearance: Alert. Oriented X3. No acute distress. Eyes: Pupils equal, round and reactive to light. ENT: Pharynx normal. Neck: Normal inspection. CVS: Pulses normal. Respiratory: No respiratory distress. Abdomen: atraumatic Skin: Skin warm and dry. Normal skin color. Extremities: No lower extremity edema. R foot pain on plantar insertion, no rash, some ttp along calcaneous, NV intact, no rash, BCR in all digits, SILT intact Neuro: Oriented X 3. No motor deficit. No sensory deficit. Medical Decision Making Medical Decision Making MDM Narrative: 34 yo female with PMH Of asthma who has been having R heel and foot pain I suspect clinically plantar fasciitis she is NV intact, no rash, pain able to reproduce at insertion. She has hx of foot fracture in other foot is worried about injury - xray ordered Differential Diagnosis Differential Diagnoses: The differential diagnosis associated with the presentation includes spur, plantar fasciitis Independent Interpretation I performed an independent interpretation of an: Plain X-Ray (no trauma) Radiology Impression Discussion of test interpretation with radiology: I have reviewed the radiologist's reading. External Record Review External record reviewed: Outpatient record Prescription Management I considered prescription management with: Other Discharge Plan Discharge Clinical Impression: Plantar fasciitis Heel spur Qualifiers: Laterality: right Qualified Code(s): M77.31 - Calcaneal spur, right foot Patient Disposition: Home, Self-Care Instructions: Plantar Fasciitis (ED), Heel Spur (ED), Plantar Fasciitis Exercises (ED) Additional Instructions: no broken bone xray shows heel spur continue to use orthotic and supportive shoes you can call and follow up with orthopedics I have listed the number below you can contact the office for follow up Findings: No fracture or dislocation. The joint spaces are preserved without osteophytosis. Calcaneal spur. Soft tissue swelling. Prescriptions: New cyclobenzaprine 10 mg tablet 10 mg PO TID PRN (Reason: muscle spasm) Qty: 20 0RF prednisone 20 mg tablet 40 mg PO DAILY 5 Days Qty: 10 0RF No Action bupropion HCl [Wellbutrin XL] 150 mg tablet extended release 24 hr 150 mg PO QAM Qty: 30 2RF levothyroxine 150 mcg tablet 150 mcg PO DAILY 30 Days Qty: 90 2RF Probiotic 1 tab PO DAILY multivitamin PO DAILY cyclobenzaprine 10 mg tablet 10 mg PO TID PRN (Reason: muscle spasm) Qty: 20 0RF hydroxyzine HCl 10 mg tablet 10 mg PO BID PRN (Reason: anxiety) Qty: 14 0RF Olumiant 2 mg tablet 2 mg PO DAILY Rx Instructions: Dr. [facility] Dulera 200-5 mcg/actuation HFA aerosol inhaler 2 puff inhalation BID Qty: 13 11RF cetirizine 10 mg tablet 10 mg PO DAILY PRN meloxicam 15 mg tablet 15 mg PO DAILY PRN (Reason: pain) Qty: 30 3RF albuterol sulfate 90 mcg/actuation HFA aerosol inhaler 1 inh inhalation QID PRN (Reason: shortness of breath or wheezing) 30 Days Qty: 8.5 3RF Referrals: [facility] [place] [Provider Group] Print Language: Amharic
[2024-12-09 20:42] VITALS: BP 120/64; PULSE 76; RESP 20; TEMP 36.4; O2SAT 97
== END 2024-12-09 20:43 | disposition home or self-care (01) ==
PROVIDERS: Emergency Provider Emergency Medicine; PCP Internal Medicine
DX: M72.2 Plantar fascial fibromatosis (principal); J45.909 Unspecified asthma, uncomplicated
CPT/HCPCS: 73630; 99283; 99284

== ENCOUNTER → 2024-12-09 19:16 | Outpatient (BNV) | payer SELFPAY | PROVIDERS: Emergency Provider Emergency Medicine; PCP Internal Medicine; Visit Provider Radiology Diagnostic Radiology | DX: M79.671 Pain in right foot (principal) | CPT/HCPCS: 73630 ==